=== PATIENT | female | born 1955 | race Caucasian/White ===

== ENCOUNTER → 2016-08-20 | Outpatient (CLI) | payer BC ==
[2016-08-20 08:31] LABS: Basophils % (A) 1 %; CH 28.7; CHCM 32.2; Eosinophils # (A) 0.4 k/uL (0-0.7); Eosinophils % (A) 6 %; HCT 39.8 % (34.0-46.0); HGB 13.5 gm/dL (11.4-16.0); Luc # (Auto) 0.21; Luc % (Auto) 3; Lymphocytes # (A) 1.9 k/uL (1.0-4.8); Lymphocytes % (A) 29 %; MCH 30.3 pg (25.0-35.0); MCHC 33.8 g/dL (31.0-37.0); MCV 89.6 fL (80.0-100.0); Mean Platelet Volume 6.5; Monocytes # (A) 0.4 k/uL (0-1.0); Monocytes % (A) 5 %; Neutrophils # (A) 3.6 k/uL (1.3-7.7); Neutrophils % (A) 56 %; RBC 4.44 m/uL (3.80-5.40); RDW 13.2 % (11.5-15.5); WBC 6.5 k/uL (3.8-10.6); WBC (Perox) 6.89
[2016-08-20 08:51] LABS: ALT 34 U/L (9-52); AST 30 U/L (14-36); Alkaline Phosphatase 112 U/L (38-126); Anion Gap 8 mmol/L; Blood Urea Nitrogen 12 mg/dL (7-17); Calcium 9.3 mg/dL (8.4-10.2); Carbon Dioxide 26 mmol/L (22-30); Chloride 105 mmol/L (98-107); Cholesterol 218 mg/dL (<200); Glucose 93 mg/dL (74-99); HDL Cholesterol 81 mg/dL (40-60); Non-African American GFR(MDRD) >60 (>60 ml/min/1.73 sqM); Potassium 4.6 mmol/L (3.5-5.1); Sodium 139 mmol/L (137-145); Total Bilirubin 0.6 mg/dL (0.2-1.3); Total Protein 7.2 g/dL (6.3-8.2); Triglycerides 96 mg/dL (<150)
== END | disposition home or self-care (01) ==
LOC: LABWHC1 07:34
PROVIDERS: ATTEND Physician Assistant Medical
DX: Z00.01 Encounter for general adult medical examination with abnormal findings (principal); E78.5 Hyperlipidemia, unspecified
CPT/HCPCS: 36415; 80053; 80061; 84443; 85025

== ENCOUNTER → 2016-09-21 | Outpatient (CLI) | payer BC ==
--- NOTE | 2016-09-22 09:31 | MM ---
Reason for exam: screening (asymptomatic). Last mammogram was performed 1 year ago. History: Patient is postmenopausal and is nulliparous. Family history of breast cancer in sister at age 49. Took hormonal contraceptives for 15 years. Took progesterone for 5 months. Taking other hormone. Physical Findings: A clinical breast exam by your physician is recommended on an annual basis and results should be correlated with mammographic findings. MG Screening Mammo w CAD Bilateral CC and MLO view(s) were taken. Prior study comparison: September 27, 2015, bilateral MG screening mammo w CAD. September 25, 2014, bilateral MG screening mammo w CAD. July 31, 2013, bilateral MG screening mammo w CAD. There are scattered fibroglandular densities. Finding: There are typically benign round calcifications in the left breast. There is no discrete abnormality. ASSESSMENT: Benign, BI-RAD 2 RECOMMENDATION: Routine screening mammogram of both breasts in 1 year.
== END | disposition home or self-care (01) ==
LOC: RADMAMWWP 09:00
PROVIDERS: ATTEND Family Medicine
DX: Z12.31 Encounter for screening mammogram for malignant neoplasm of breast (principal)

== ENCOUNTER → 2016-10-16 | Outpatient (CLI) | payer BC ==
[2016-10-16 12:06] LABS: Uric Acid 3.2 mg/dL (3.7-7.4)
[2016-10-16 12:11] LABS: Rheumatoid Factor, Qnt <9 IU/mL (<12)
[2016-10-16 16:47] LABS: ANA w/Reflex to Titer NEGATIVE (NEGATIVE)
[2016-10-20 10:07] LABS: Lyme IgG/IgM Interp NEGATIVE (NEGATIVE)
== END | disposition home or self-care (01) ==
LOC: LABWHC1 09:31
PROVIDERS: ATTEND Orthopaedic Surgery Foot and Ankle Surgery
DX: M79.671 Pain in right foot (principal); M79.672 Pain in left foot; M19.072 Primary osteoarthritis, left ankle and foot
CPT/HCPCS: 36415; 84550; 86038; 86431; 86618

== ENCOUNTER → 2017-08-26 | Outpatient (CLI) | payer BC ==
--- NOTE | 2017-08-27 01:27 | MR ---
EXAMINATION TYPE: MR knee LT wo con DATE OF EXAM: 08/26/2017 COMPARISON: None HISTORY: Lt knee pain/medial TECHNIQUE: Multiplanar, multisequence imaging of the left knee is performed without IV contrast. FINDINGS: There is complex increased signal in the posterior horn medial meniscus extending to the superior and inferior surface. There is some narrowing of the medial joint space. There is horizontal increased s ignal within the anterior and posterior horns of the lateral meniscus. There is some thinning of the anterior cruciate ligament. Posterior cruciate ligament is intact. Ther e is a minute knee joint effusion. There is small degenerative 4 mm cyst in the subchondral patella. The collateral ligaments are intact. IMPRESSION: Small knee joint effusion. Complex horizontal and vertical tear of the posterior horn medial meniscus . There is mild intrasubstance tear of the lateral meniscus without extension to the articular surfac e. There is probably partial tear of the anterior cruciate ligament. No fracture. Mild osteoarthritic changes.
== END | disposition home or self-care (01) ==
LOC: RADMRIMAIN 20:24
PROVIDERS: ATTEND Orthopaedic Surgery
DX: S83.232A Complex tear of medial meniscus, current injury, left knee, initial encounter (principal); S83.282A Other tear of lateral meniscus, current injury, left knee, initial encounter; M17.12 Unilateral primary osteoarthritis, left knee

== ENCOUNTER → 2017-09-03 | Outpatient (CLI) | payer BC ==
[2017-09-03 10:48] LABS: Basophils % (A) 1 %; Eosinophils # (A) 0.2 k/uL (0-0.7); Eosinophils % (A) 3 %; HCT 39.8 % (34.0-46.0); HGB 12.8 gm/dL (11.4-16.0); Lymphocytes # (A) 2.3 k/uL (1.0-4.8); Lymphocytes % (A) 36 %; MCH 28.4 pg (25.0-35.0); MCHC 32.1 g/dL (31.0-37.0); MCV 88.4 fL (80.0-100.0); Mean Platelet Volume 6.2; Monocytes # (A) 0.4 k/uL (0-1.0); Monocytes % (A) 7 %; Neutrophils # (A) 3.2 k/uL (1.3-7.7); Neutrophils % (A) 50 %; Platelet Count 308 k/uL (150-450); RDW 13.8 % (11.5-15.5); WBC 6.4 k/uL (3.8-10.6)
[2017-09-03 10:56] LABS: Potassium 4.7 mmol/L (3.5-5.1)
== END | disposition home or self-care (01) ==
LOC: LABPAT 10:24
PROVIDERS: ATTEND Orthopaedic Surgery
DX: Z01.818 Encounter for other preprocedural examination (principal); M23.92 Unspecified internal derangement of left knee; Z01.812 Encounter for preprocedural laboratory examination
CPT/HCPCS: 36415; 80051; 85025; 93005

== ENCOUNTER 2017-09-22 07:03 | Day surgery (SDC) | payer BC ==
[2017-09-16 15:24] VITALS: BMI 42.9
--- NOTE | 2017-09-21 14:33 | HP ---
HISTORY AND PHYSICAL DATE OF SURGERY: 09/22/17 Ynes Houston is a 62-year-old patient seen with progressive left knee pain. Treatment options discussed. She elected to proceed with arthroscopy. Consent was obtained. PAST MEDICAL HISTORY: Noncontributory. PAST SURGICAL HISTORY: Left ankle surgery, left carpal tunnel release, tonsillectomy. DAILY MEDICATIONS: Multiple multivitamins. ALLERGIES: None reported. SOCIAL HISTORY: Patient denies tobacco use. PHYSICAL EXAMINATION: Evaluation of the left knee: Range of motion 0 to 120 degrees. Mild effusion. Tenderness medial joint line. Positive medial Jazzy's. Ligaments stable. Hip rotation without pain. Distal vascular exam is intact. Distal neuro exam, there is obvious decreased sensation in the tibial nerve distribution consistent with history of tibial neuropathy. X-RAYS: Were obtained of the left knee revealing mild osteoarthritis. MRI was obtained left knee revealing medial meniscal tear, partial ACL tear and joint effusion. The previous EMG was reviewed demonstrating a tibial neuropathy at the level of the knee. IMPRESSIONS: 1. Internal derangement left knee with medial meniscal tear. 2. History of left lower extremity tibial neuropathy. PLAN: Left knee arthroscopy with partial meniscectomy and debridement. MMODL / IJN: [id number] /
[~2017-09-22 07:03] MED LIST: DEXAMETHASONE SOD PHOSPHATE 10 MG/ML 1 ML VIAL IV ONE; LIDOCAINE 1% 20 ML VIAL (10MG/ML) FOR IV START INTRADERMA PRN; MIDAZOLAM 2 MG/2 ML VIAL IV PRN; ONDANSETRON 4 MG/2 ML VIAL IVP ONE; fentaNYL (PF) 50 MCG/ML 2 ML AMP IV PRN
[2017-09-22] MEDS: LACTATED RINGERS 1,000 ML IV SCH ×2 (08:00→08:45)
[2017-09-22] MEDS ORDERED: LIDOCAINE 1% INJ 10MG/ML (20 ML MDV) ONE (08:48)
[2017-09-22] MEDS ORDERED: ROPIVACAINE 5 MG/ML 30 ML VIAL MISCELLANE ONE (08:48)
[2017-09-22] MEDS ORDERED: fentaNYL (PF) 50 MCG/ML 2 ML AMP ONE (08:48)
[2017-09-22] MEDS ORDERED: SUCCINYLCHOLINE CHLORIDE 100 MG/5 ML SYR IV ONE (08:48)
[2017-09-22] MEDS ORDERED: MIDAZOLAM 2 MG/2 ML VIAL ONE (08:48)
[2017-09-22] MEDS ORDERED: HYDROmorphone (PF) 1 MG/ML ONE (08:48)
[2017-09-22] MEDS ORDERED: PROPOFOL 10 MG/ML 20 ML VIAL IV ONE (08:48)
--- NOTE | 2017-09-22 09:47 | P.OP ---
Date of Procedure: 09/22/17 Preoperative Diagnosis: Internal derangement left knee Postoperative Diagnosis: 1. Tear medial and lateral meniscus left knee 2. Grade 3/4 chondromalacia medial femoral condyle left knee 3. Grade 3/4 chondromalacia patellofemoral joint left knee 4. Medial plica left knee 5. Reactive synovitis medial and suprapatellar compartments left knee Procedure(s) Performed: 1. Arthroscopic partial medial and lateral meniscectomy left knee 2. Arthroscopic microfracture medial femoral condyle left knee 3. Arthroscopic chondroplasty medial femoral condyle and patellofemoral joints left knee 4. Arthroscopic resection medial plica left knee 5. Arthroscopic partial synovectomy medial and suprapatellar compartments left knee Anesthesia: TERRYA, local Surgeon: Augusto Ruff Estimated Blood Loss (ml): 7 Pathology: none sent Condition: stable Disposition: PACU Indications for Procedure: 62 roll patient seen with progressive left knee pain. After having treatment options discussed, she elected to proceed with arthroscopy. Operative Findings: see description of procedure Description of Procedure: Patient was taken to the operative suite. Patient underwent a general anesthetic by the department of anesthesia. Patient was given preoperative antibiotics. The left lower extremity was placed in a well-padded arthroscopic leg miller. The left leg was prepped and draped in the normal sterile orthopedic fashion. A lateral parapatellar and suprapatellar incision was made. Trochars were inserted. Arthroscopy was initiated. Suprapatellar pouch revealed diffuse thick reactive synovitis. The patellofemoral joint appeared articulate congruently. There a 3/4 chondromalacia involving both the patella and femoral sulcus with some diffuse osteochondral tears present. The scope was guided into the medial gutter. There was a medial plica which did seem to impinge along the medial femoral condyle with range of motion. The scope was then guided into the medial compartment. A medial parapatellar incision was made. Trocar inserted followed by probe. There was a radial tear involving the posterior horn medial meniscus. There were grade 3/4 chondromalacia changes the medial femoral condyle with osteochondral tears present. There was thick reactive synovitis anteriorly. There were grade 2/3 chondral malacia changes the medial tibial plateau. I performed a partial medial meniscectomy Down to stable tissue. I performed a chondroplasty of the medial femoral condyle down to stable tissue. I performed a partial synovectomy decompressing the thickness reactive synovitis anteriorly. I did note a small area of exposed bone along the weightbearing surface of the medial femoral condyle. I performed a microfracture of that area penetrating the bone. There was good bleeding of the bone at the area of the microfracture. I cleared the area with a motorized shaver. We noted good stable residual meniscal tissue. There was good decompression of that thick reactive synovitis anteriorly. The residual osteochondral surface was stable. Scope and probe were then guided into the intercondylar notch. Cruciates were identified, probed and found to be stable. The scope and probe were then guided into lateral compartment. There was a radial tear mid body lateral meniscus. There were grade 1/2 chondromalacia changes lateral compartment with no significant osteochondral tears present. There was no synovitis. There were no loose bodies. I performed a partial lateral meniscectomy down to stable tissue. The residual meniscus was stable. The scope was in guided back into the suprapatellar compartment. I introduced a motorized shaver into the suprapatellar compartment. I debrided some piecemeal fragments of meniscus I encountered. I now resected that medial plica. I now performed a chondroplasty of the patellofemoral joint getting down to stable osteochondral tissue. I now performed a partial synovectomy decompressing the thick reactive synovitis in the suprapatellar compartment. There was good decompression of the thick reactive synovitis noted there was stable residual osteochondral tissue. I took the knee through range of motion noted complete resection of the plica with good excursion of the joint and no impingement. I took one more look on the entire knee, no residual debris. Instruments were now removed from the joint. The joint was infiltrated with .25 % Marcaine. Steri-Strips were applied to the portal sites. Sterile dressings were applied. The patient was placed into a SHAWN hose. No tourniquet was utilized. The patient was awakened, transferred to a bed and taken to recovery stable satisfactory condition.
[2017-09-22 09:52] VITALS: TEMP 96.9
[2017-09-22] MEDS ORDERED: KETOROLAC 30 MG/ML 1 ML VIAL IVP ONE (10:06)
[2017-09-22 10:30] VITALS: RESP 16
[2017-09-22] MEDS ORDERED: LACTATED RINGERS 1,000 ML IV ONE (10:30)
[2017-09-22 11:02] VITALS: BP 142/72; PULSE 87
== END 2017-09-22 12:00 | disposition home or self-care (01) ==
LOC: OR 07:03
PROVIDERS: ATTEND Orthopaedic Surgery
DX: S83.242A Other tear of medial meniscus, current injury, left knee, initial encounter (principal); S83.282A Other tear of lateral meniscus, current injury, left knee, initial encounter; X58.XXXA Exposure to other specified factors, initial encounter; M94.262 Chondromalacia, left knee; M22.42 Chondromalacia patellae, left knee; M67.52 Plica syndrome, left knee; M65.862 Other synovitis and tenosynovitis, left lower leg; K21.9 Gastro-esophageal reflux disease without esophagitis; Z91.09 Other allergy status, other than to drugs and biological substances
CPT/HCPCS: 29880; 29879; J2250; J1100; J0690; J2405; J2001; J3010; J1885; J1170; J2795; J0330; J2704

== ENCOUNTER 2017-09-29 22:23 | Emergency (ER) | payer BC ==
[2017-09-29 22:39] VITALS: TEMP 98.1
--- NOTE | 2017-09-29 22:42 | ED ---
General Adult HPI - General Chief complaint: Extremity Problem,Nontraumatic Stated complaint: post knee surgery-poss blood clot Time Seen by Provider: 09/29/17 22:42 Source: patient Mode of arrival: ambulatory Limitations: no limitations - History of Present Illness Initial comments: Ynes is a 62yo female who underwent an optic knee surgery 1 week ago, she presents the ED today after she noticed some bruising in her popliteal fossa and became concerned that she may have a DVT. Patient states that since the surgery she has been wearing knee-high compression socks because she cannot tolerate the thigh-high compression, she reports mild edema of her lower extremity. Patient has a history of neuropathy to this foot after previous surgery, she has undergone nerve testing for this foot in the past. She has been told that she will likely have neuropathy for a number of years as her foot recovers from a nerve block. Patient states that since the knee surgery she does feel that her neuropathy is slightly worse. Patient denies any additional complaints. - Related Data Home Medications Medication Instructions Recorded Confirmed Multivitamins, Thera [Multivitamin 1 tab PO DAILY 09/14/17 09/22/17 (formulary)] Vitamin B Complex 1 each PO DAILY 09/14/17 09/22/17 Flaxseed Oil [[place]-3 Flaxseed Oil] 1,000 mg PO DAILY 09/16/17 09/22/17 Red Yeast Rice 600 mg PO DAILY 09/16/17 09/22/17 Previous Rx's Medication Instructions Recorded HYDROcodone/APAP 7.5-325MG [[place] 1 each PO Q6HR PRN #21 tab 09/22/17 7.5] Allergies Allergy/AdvReac Type Severity Reaction Status Date / Time povidone-iodine Allergy SKIN Verified 09/29/17 22:39 [From Betadine] BREAKDOWN Review of Systems ROS Statement: Those systems with pertinent positive or pertinent negative responses have been documented in the HPI. ROS Other: All systems not noted in ROS Statement are negative. Past Medical History Past Medical History: No Reported History History of Any Multi-Drug Resistant Organisms: None Reported Past Surgical History: Orthopedic Surgery Additional Past Surgical History / Comment(s): left knee. left foot. right shoulder. neck. carpal tunnel release. left ankle. Past Psychological History: No Psychological Hx Reported Past Alcohol Use History: None Reported Past Drug Use History: None Reported General Exam Limitations: no limitations General appearance: alert, in no apparent distress Head exam: Present: atraumatic, normocephalic Eye exam: Present: PERRL ENT exam: Present: normal exam Neck exam: Present: normal inspection Cardiovascular Exam: Present: regular rate, normal rhythm GI/Abdominal exam: Present: soft. Absent: distended Rectal exam: Present: deferred Extremities exam: Present: full ROM Left Hip exam: Present: normal inspection Upper Leg exam: Present: normal inspection Knee exam: Present: full ROM, swelling, laceration (Well-healing surgical incisions with Steri-Strips in place, no surrounding erythema or signs of infection) Lower Leg exam: Present: swelling (1+ pitting edema of the lower extremity), ecchymosis (Ecchymosis noted in the popliteal fossa). Absent: tenderness Ankle exam: Present: full ROM Foot/Toe exam: Present: normal inspection Neurovascular tendon exam: Present: no vascular compromise, sensory deficit. Absent: pulse deficit, abnormal cap refill, motor deficit, tendon deficit, pallor, foot drop Course Vital Signs 09/29/17 09/30/17 22:34 01:15 Temperature 98.1 F Pulse Rate 94 88 Respiratory 24 18 Rate Blood Pressure 146/82 147/79 O2 Sat by Pulse 96 96 Oximetry Medical Decision Making - Medical Decision Making The patient was seen and evaluated, history was obtained from the patient and at bedside Patient with no history of DVT but noted some bruising to her what alk phos and became concerned she may have a DVT, she does have a history of varicose veins and did note she had a varicose vein in that area. She does state she's been wearing a knee high compression socks because she cannot tolerate the thigh-high 's. Venous Dopplers with no evidence of DVT Results were discussed with the patient who expresses relief, at this time I suspect that ecchymosis and hernias postoperative. I advised her to continue wearing the compressive sleeves and follow-up with orthopedics as scheduled. All questions pertaining care were answered best my ability patient was discharged home in stable condition Disposition Clinical Impression: Postoperative ecchymosis, Edema of lower extremity Disposition: HOME SELF-CARE Condition: Good Instructions: [place] (ED) Is patient prescribed a controlled substance at d/c from ED?: No Referrals: Nabeel Levi III, MD [Primary Care Provider] - 1-2 days Decision Time: 00:51
--- NOTE | 2017-09-30 00:36 | US ---
EXAMINATION TYPE: US venous doppler duplex LE DATE OF EXAM: 09/30/2017 12:26 AM COMPARISON: NONE CLINICAL HISTORY: Pain. Left knee pain. SIDE PERFORMED: Bilateral TECHNIQUE: The lower extremity deep venous system is examined utilizing real time linear array sonog pranay with graded compression, doppler sonography and color-flow sonography. VESSELS IMAGED: External Iliac Vein (EIV) Common Femoral Vein Deep Femoral Vein Greater Saphenous Vein * Femoral Vein Popliteal Vein Small Saphenous Vein * Proximal Calf Veins (* superficial vessels) Right Leg: Negative for DVT Left Leg: Negative for DVT No evidence of DVT bilateral legs. IMPRESSION: Normal exam. No evidence of deep venous thrombosis in both legs.
[2017-09-30 01:21] VITALS: BP 147/79; PULSE 88; RESP 18
== END 2017-09-30 01:15 | disposition home or self-care (01) ==
LOC: EC 22:23
DX: M96.89 Other intraoperative and postprocedural complications and disorders of the musculoskeletal system (principal); R60.0 Localized edema; Z79.899 Other long term (current) drug therapy; Z88.8 Allergy status to other drugs, medicaments and biological substances; Z98.890 Other specified postprocedural states
CPT/HCPCS: 93970; 99283

== ENCOUNTER → 2017-10-30 | Outpatient (CLI) | payer BC ==
[2017-10-30 09:44] LABS: Basophils % (A) 1 %; Eosinophils # (A) 0.4 k/uL (0-0.7); Eosinophils % (A) 6 %; HCT 40.8 % (34.0-46.0); HGB 12.7 gm/dL (11.4-16.0); Lymphocytes % (A) 31 %; MCH 28.2 pg (25.0-35.0); MCHC 31.1 g/dL (31.0-37.0); MCV 90.5 fL (80.0-100.0); Mean Platelet Volume 6.2; Monocytes # (A) 0.4 k/uL (0-1.0); Monocytes % (A) 6 %; Neutrophils # (A) 3.5 k/uL (1.3-7.7); Neutrophils % (A) 53 %; Platelet Count 341 k/uL (150-450); RBC 4.51 m/uL (3.80-5.40); RDW 13.5 % (11.5-15.5); WBC 6.5 k/uL (3.8-10.6)
[2017-10-30 09:58] LABS: ALT 40 U/L (9-52); AST 31 U/L (14-36); Albumin 3.9 g/dL (3.5-5.0); Alkaline Phosphatase 112 U/L (38-126); Anion Gap 7 mmol/L; Blood Urea Nitrogen 17 mg/dL (7-17); Calcium 9.4 mg/dL (8.4-10.2); Carbon Dioxide 29 mmol/L (22-30); Chloride 105 mmol/L (98-107); Cholesterol 187 mg/dL (<200); Glucose 94 mg/dL (74-99); HDL Cholesterol 75 mg/dL (40-60); LDL Cholesterol,Calculated 97 mg/dL (0-99); Potassium 5.1 mmol/L (3.5-5.1); Sodium 141 mmol/L (137-145); Total Bilirubin 0.4 mg/dL (0.2-1.3); Total Protein 6.8 g/dL (6.3-8.2); Triglycerides 77 mg/dL (<150)
== END ==
LOC: LABWHC1 08:23
PROVIDERS: ATTEND Physician Assistant Medical
DX: Z00.00 Encounter for general adult medical examination without abnormal findings (principal); E78.5 Hyperlipidemia, unspecified; E66.01 Morbid (severe) obesity due to excess calories
CPT/HCPCS: 36415; 80053; 80061; 84443; 85025

== ENCOUNTER → 2019-02-02 | Outpatient (CLI) | payer BC ==
--- NOTE | 2019-02-03 14:50 | MM ---
Reason for exam: screening (asymptomatic). Last mammogram was performed 1 year and 1 month ago. History: Patient is postmenopausal and is nulliparous. Family history of breast cancer in sister at age 49. Took hormonal contraceptives for 15 years. Took progesterone for 5 months. Taking other hormone. Physical Findings: A clinical breast exam by your physician is recommended on an annual basis and results should be correlated with mammographic findings. MG Screening Mammo w CAD Bilateral CC and MLO view(s) were taken. Prior study comparison: January 13, 2018, bilateral MG screening mammo w CAD. September 21, 2016, bilateral MG screening mammo w CAD. There are scattered fibroglandular densities. There is no discrete abnormality. No significant changes when compared with prior studies. ASSESSMENT: Negative, BI-RAD 1 RECOMMENDATION: Routine screening mammogram of both breasts in 1 year.
== END | disposition home or self-care (01) ==
LOC: RADMAMWWP 09:13
PROVIDERS: ATTEND Family Medicine
DX: Z12.31 Encounter for screening mammogram for malignant neoplasm of breast (principal)
CPT/HCPCS: 77067

== ENCOUNTER → 2020-05-31 | Outpatient (CLI) | payer BC ==
--- NOTE | 2020-06-04 07:33 | MM ---
Reason for exam: screening (asymptomatic). Last mammogram was performed 1 year and 4 months ago. History: Patient is postmenopausal and is nulliparous. Family history of breast cancer in sister at age 49. Took hormonal contraceptives for 15 years. Took progesterone for 5 months. Taking other hormone. Physical Findings: A clinical breast exam by your physician is recommended on an annual basis and results should be correlated with mammographic findings. MG Screening Mammo w CAD Bilateral CC and MLO view(s) were taken. Prior study comparison: February 02, 2019, bilateral MG screening mammo w CAD. January 13, 2018, bilateral MG screening mammo w CAD. The breast tissue is almost entirely fat. No significant changes when compared with prior studies. ASSESSMENT: Negative, BI-RAD 1 RECOMMENDATION: Routine screening mammogram of both breasts in 1 year.
== END | disposition home or self-care (01) ==
LOC: RADMAMWWP 13:11
PROVIDERS: ATTEND Family Medicine
DX: Z12.31 Encounter for screening mammogram for malignant neoplasm of breast (principal); Z78.0 Asymptomatic menopausal state; Z80.3 Family history of malignant neoplasm of breast
CPT/HCPCS: 77067

== ENCOUNTER 2021-03-08 13:42 | Emergency (ER) | payer BC ==
[2021-03-08 14:00] VITALS: RESP 20; TEMP 98.4
[2021-03-08] MEDS ORDERED: LIDOCAINE VISCOUS 2% 15 ML CUP MUCOUS MEM ONE (14:25)
[2021-03-08] MEDS ORDERED: dexAMETHasone 2 MG TAB PO STA (14:26)
--- NOTE | 2021-03-08 14:26 | ED ---
General Adult HPI - General Chief complaint: Upper Respiratory Infection Stated complaint: Sore Throat, Covid+ Source: patient Mode of arrival: ambulatory Limitations: no limitations - History of Present Illness Initial comments: 65-year-old female presents emergency department requesting antibody infusion. She states that she has had a positive contact. She has had symptoms since Wednesday night. Consist of a headache and sore throat. Patient is not vaccinated. She denies chest pain or shortness of breath. No fevers or chills. No other alleviating, precipitating or modifying factors - Related Data Home Medications Medication Instructions Recorded Confirmed Multivitamins, Thera [Multivitamin 1 tab PO DAILY 09/14/17 09/22/17 (formulary)] Vitamin B Complex 1 each PO DAILY 09/14/17 09/22/17 Red Yeast Rice 600 mg PO DAILY 09/16/17 09/22/17 flaxseed oiL [[place]-3 Flaxseed Oil] 1,000 mg PO DAILY 09/16/17 09/22/17 Previous Rx's Medication Instructions Recorded HYDROcodone/APAP 7.5-325MG [[place] 1 each PO Q6HR PRN #21 tab 09/22/17 7.5] Allergies Allergy/AdvReac Type Severity Reaction Status Date / Time povidone-iodine Allergy SKIN Verified 03/08/21 14:00 [From Betadine] BREAKDOWN Review of Systems ROS Statement: Those systems with pertinent positive or pertinent negative responses have been documented in the HPI. ROS Other: All systems not noted in ROS Statement are negative. Past Medical History Past Medical History: No Reported History History of Any Multi-Drug Resistant Organisms: None Reported Past Surgical History: Orthopedic Surgery Additional Past Surgical History / Comment(s): left knee. left foot. right shoulder. neck. carpal tunnel release. left ankle. Past Psychological History: No Psychological Hx Reported Smoking Status: Never smoker Past Alcohol Use History: Occasional Past Drug Use History: None Reported General Exam Limitations: no limitations Course Vital Signs 03/08/21 13:57 Temperature 98.4 F Pulse Rate 97 Respiratory 20 Rate Blood Pressure 150/78 O2 Sat by Pulse 97 Oximetry Medical Decision Making - Medical Decision Making Upon arrival patient is placed into room 24. She does meet criteria for antibody infusion. Patient is swabbed to document that she is covid positive and she is. Patient will be given infusion. Instructed to follow-up with her primary care doctor in 2-4 days. Return for any new or worsening symptoms especially of her pulse ox was 90%. Patient agreement treatment plan she was discharged home in stable condition - Lab Data Lab Results 03/08/21 Range/Units 14:23 Coronavirus (PCR) Detected A (Not Detectd) Disposition Clinical Impression: COVID-19 Disposition: HOME SELF-CARE Condition: Stable Instructions (If sedation given, give patient instructions): Coronavirus Disease 2019 (COVID-19) Additional Instructions: Please follow-up with your primary care doctor within 2-4 days. Return to the emergency room for any new or worsening symptoms Is patient prescribed a controlled substance at d/c from ED?: No Referrals: Teresa Muñoz MD [Primary Care Provider] - 1-2 days Time of Disposition: 14:25
[2021-03-08] MEDS ORDERED: SODIUM CHLORIDE 0.9% 50 ML IVPB ONE (14:30)
[2021-03-08] MEDS ORDERED: SOTROVIMAB (EUA) 500 MG in SODIUM CHLORIDE 0.9% 100 ML IVPB ONE (14:30)
[2021-03-08 16:17] VITALS: BP 118/80; PULSE 87
== END 2021-03-08 17:52 | disposition home or self-care (01) ==
LOC: EC 13:42
DX: U07.1 COVID-19 (principal)
CPT/HCPCS: 87635; 99284; 96360; J8540; Q0247

== ENCOUNTER → 2021-06-19 | Outpatient (CLI) | payer BC | END | disposition home or self-care (01) | LOC: RADUSWWP 09:29 | PROVIDERS: ATTEND Family Medicine | DX: E78.5 Hyperlipidemia, unspecified (principal); M79.605 Pain in left leg; R09.89 Other specified symptoms and signs involving the circulatory and respiratory systems | CPT/HCPCS: 93922 ==

== ENCOUNTER → 2021-07-23 | Outpatient (CLI) | payer BC ==
--- NOTE | 2021-07-23 11:37 | BD ---
EXAMINATION TYPE: Axial Bone Density DATE OF EXAM: 07/23/2021 COMPARISON: NONE CLINICAL HISTORY: 66 years year old Female. ICD-10 CODE: Z13.820 SCREEN FOR OSTEOPOROSIS Height: 63 Weight: 258.2 FRAX RISK QUESTIONS: Alcohol (3 or more units per day): NO Family History (Parent hip fracture): NO Glucocorticoids (More than 3mos): NO History of Fracture in Adulthood: NO Secondary Osteoporosis: 1. Type 1 Diabetes: NO 2. Hyperthyroidism: NO 3. Menopause before 45: NO 4. Malnutrition: NO 5. Chronic liver disease: NO Rheumatoid Arthritis: NO Current Tobacco Use: NO RISK FACTORS HISTORY OF: Hip Fracture (Right/Left): NO Spine Fracture: NO History of Wrist Fracture: NO Surgery to Spine/Hip(right/left)/Wrist (right/left): LT WRIST CARPAL TUNNEL When: 1997 Family History of Osteoporosis: NO Active: YES Diet low in dairy products/other sources of calcium: NO Postmenopausal woman: YES Take estrogen and/or progesterone medications: NO Lost more than 2 inches in height since high school: YES Frequent falls: NO Poor Health: NO Hyperparathyroidism: NO Adrenal Insufficiency: NO MEDICATIONS: Prednisone or other steroids: NO Thyroid Medications: NO Osteoporosis Medications: NO Additional Medications: MULTI VIT., VIT D, MAGNESIUM, ZINC, TUMERIC Additional History: EXAM MEASUREMENTS: Bone mineral densitometry was performed using the [employer] System. Bone mineral density as measured about the Lumbar spine is: ----- L1-L4(G/cm2): 1.024 T Score Values are as follows: ----- L1: -2.3 ----- L2: -2.7 ----- L3: -1.9 ----- L4: 0.8 ----- L1-L4: -1.3 BASELINE STUDY Bone mineral density about the R hip (g/cm2): 1.004 Bone mineral density about the L hip (g/cm2): 0.896 T Score values are as follows: -----R Neck: -0.2 -----L Neck: -1.0 -----R Total: -1.1 -----L Total: -1.3 BASELINE STUDY FRAX%s: The graph provided illustrates a 2.5% chance for a major osteoporotic fx and a 0.3% chance fo r the hips probability for fx in 10 years time. IMPRESSION: Osteopenia NOTE: T-SCORE=SD OF THE YOUNG ADULT MEAN.
--- NOTE | 2021-07-25 11:36 | MM ---
Reason for Exam: Screening (asymptomatic). Last mammogram was performed 1 year(s) and 2 month(s) ago. Patient History: Menarche at age 15. Patient has no children. Postmenopausal. Progesterone for 5 months. Patient used Hormonal Contraceptives for 15 years. Sister had breast cancer, age 49. Risk Values: Jordyn 5 year model risk: 3.2%. NCI Lifetime model risk: 12.4%. Prior Study Comparison: 01/13/2018 Bilateral Screening Mammogram, [facility]. 02/02/2019 Bilateral Screening Mammogram, [facility]. 05/31/2020 Bilateral Screening Mammogram, [facility]. Tissue Density: There are scattered fibroglandular densities. Findings: Analyzed By CAD. No suspicious groups of microcalcifications, spiculated or lobular masses, architectural distortion or other secondary signs of malignancy are mammographically apparent. Overall Assessment: Benign, BI-RAD 2 Management: Screening Mammogram of both breasts in 1 year. A negative mammogram report should not preclude additional follow up of suspicious palpable abnormalities. Patient should continue monthly self breast exam. A clinical breast exam by your physician is recommended on an annual basis and results should be correlated with mammographic findings. Electronically signed and approved by: Trae Blue D.O. Radiologis
== END | disposition home or self-care (01) ==
LOC: RADMAMWWP 10:44
PROVIDERS: ATTEND Family Medicine
DX: Z12.31 Encounter for screening mammogram for malignant neoplasm of breast (principal); M85.89 Other specified disorders of bone density and structure, multiple sites; Z78.0 Asymptomatic menopausal state
CPT/HCPCS: 77067; 77080

== ENCOUNTER → 2022-06-03 | Outpatient (CLI) | payer BC ==
[2022-06-03 11:02] LABS: Basophils # (A) 0.03 X 10*3/uL (0.00-0.10); Basophils % (A) 0.5 %; Eosinophils # (A) 0.35 X 10*3/uL (0.04-0.35); Eosinophils % (A) 5.5 %; HCT 41.1 % (37.2-46.3); HGB 13.4 g/dL (12.0-15.0); Immature Grans, Automated 0.2 %; Lymphocytes # (A) 2.33 X 10*3/uL (0.90-5.00); Lymphocytes % (A) 36.4 %; MCH 29.1 pg (27.0-32.0); MCHC 32.6 g/dL (32.0-37.0); MCV 89.3 fL (80.0-97.0); Mean Platelet Volume 9.8 fL (9.5-12.2); Monocytes # (A) 0.55 X 10*3/uL (0.20-1.00); Monocytes % (A) 8.6 %; NRBC Per 100 WBC 0 /100 WBCS (0.0-0.0); Neutrophils # (A) 3.13 X 10*3/uL (1.80-7.70); Neutrophils % (A) 48.8 %; Platelet Count 292 X 10*3/uL (140-440); RDW 13.3 % (11.5-14.5)
[2022-06-03 11:27] LABS: ALT 21 U/L (8-44); AST 24 U/L (13-35); African American GFR (CKD) 95.8 (60.0-200.0); Albumin 4.2 g/dL (3.8-4.9); Albumin/Globulin Ratio 1.57 (1.60-3.17); Alkaline Phosphatase 94 U/L (41-126); BUN/Creat Ratio 24.67 Ratio (12.00-20.00); Blood Urea Nitrogen 18.8 mg/dL (9.0-27.0); Calcium 9.5 mg/dL (8.7-10.3); Carbon Dioxide 26.8 mmol/L (20.0-27.5); Chloride 105 mmol/L (96-109); Chol/HDL Ratio 2.69 Ratio; Globulin 2.7 g/dL (1.6-3.3); Glucose 98 mg/dL (70-110); LDL Cholesterol,Calculated 106.4 mg/dL (0.0-131.0); Non-African American GFR(CKD) 82.6 (60.0-200.0); Potassium 4.3 mmol/L (3.5-5.5); Sodium 141 mmol/L (135-145); Total Protein 6.9 g/dL (6.2-8.2)
== END | disposition home or self-care (01) ==
LOC: LABWHC1 07:23
PROVIDERS: ATTEND Nurse Practitioner Family
DX: E55.9 Vitamin D deficiency, unspecified (principal); E78.2 Mixed hyperlipidemia; G58.9 Mononeuropathy, unspecified; Z13.228 Encounter for screening for other metabolic disorders; R00.2 Palpitations
CPT/HCPCS: 36415; 80053; 80061; 82306; 83036; 83735; 84443; 85025

== ENCOUNTER → 2022-07-24 | Outpatient (CLI) | payer BC ==
--- NOTE | 2022-07-27 08:35 | MM ---
Reason for Exam: Screening (asymptomatic). Last screening mammogram was performed 12 month(s) ago. Patient History: Menarche at age 15. Patient has no children. Postmenopausal. Progesterone for 5 months. Patient used Hormonal Contraceptives for 15 years. Sister had breast cancer, age 49. Risk Values: Jordyn 5 year model risk: 3.3%. NCI Lifetime model risk: 12.0%. Prior Study Comparison: 09/27/2015 Bilateral Screening Mammogram, [facility]. 09/21/2016 Bilateral Screening Mammogram, [facility]. 01/13/2018 Bilateral Screening Mammogram, [facility] 02/02/2019 Bilateral Screening Mammogram, [facility]. 05/31/2020 Bilateral Screening Mammogram, [facility]. 07/23/2021 Bilateral MG screening mammo w CAD, [facility]. Tissue Density: There are scattered fibroglandular densities. Findings: Analyzed By CAD. There is no suspicious group of microcalcifications or new suspicious mass in either breast. Overall Assessment: Negative, BI-RAD 1 Management: Screening Mammogram of both breasts in 1 year. . Patient should continue monthly self-breast exams. A clinical breast exam by your physician is recommended on an annual basis. This exam should not preclude additional follow-up of suspicious palpable abnormalities. Note on Jordyn scores and lifetime risk: 1. A Jordyn score greater than 3% is considered moderate risk. If this is the case, consider specialist referral to assess eligibility for a risk reducing agent. 2. If overall lifetime risk for the development of breast cancer is 20% or higher, the patient may qualify for future screening with alternating mammogram and breast MRI. Electronically signed and approved by: Ajay Culver M.D. Radiologis
== END | disposition home or self-care (01) ==
LOC: RADMAMWWP 08:56
PROVIDERS: ATTEND Family Medicine
DX: Z12.31 Encounter for screening mammogram for malignant neoplasm of breast (principal); Z78.0 Asymptomatic menopausal state; Z80.3 Family history of malignant neoplasm of breast
CPT/HCPCS: 77067

== ENCOUNTER 2022-08-11 08:00 | Inpatient (IN) | payer BC ==
[~2022-08-11 08:00] MED LIST changes: -DEXAMETHASONE SOD PHOSPHATE 10 MG/ML 1 ML VIAL IV ONE; +LIDOCAINE 1% (10MG/ML) FOR IV START INTRADERMA PRN; -LIDOCAINE 1% 20 ML VIAL (10MG/ML) FOR IV START INTRADERMA PRN; -MIDAZOLAM 2 MG/2 ML VIAL IV PRN; -ONDANSETRON 4 MG/2 ML VIAL IVP ONE; -fentaNYL (PF) 50 MCG/ML 2 ML AMP IV PRN
[2022-08-11] MEDS: LACTATED RINGERS 1,000 ML IV SCH (08:21)
[2022-08-11] MEDS ORDERED: PROPOFOL 10 MG/ML 20 ML VIAL IV ONE ×2 (09:04→13:45)
[2022-08-11] MEDS ORDERED: LIDOCAINE 2% INJ 20 MG/ML (2 ML VIAL) ONE ×2 (09:04→13:45)
[2022-08-11] MEDS ORDERED: IV FLUID CONTINUATION 1,000 ML IV ONE (09:59)
--- NOTE | 2022-08-11 10:02 | P.PCN ---
Date of Procedure: 08/11/22 Procedure(s) Performed: BRIEF HISTORY: Patient is a 67-year-old pleasant white female scheduled for an elective colonoscopy as a part of screening for colon cancer/family history of colon cancer. Her father was diagnosed with colon cancer at age 70. Her last colonoscopy was 5 years ago and according to the patient was normal. PROCEDURE PERFORMED: Attempted colonoscopy. PREOPERATIVE DIAGNOSIS: Screening for colon cancer/family history of colon cancer. IV sedation per Anesthesia. PROCEDURE: After informed consent was obtained, the patient, was brought into the endoscopy unit. IV sedation was administered by Anesthesia under continuous monitoring. Digital rectal examination was normal. Initially the Olympus CF-160 flexible video colonoscope was then inserted in the rectum, gradually advanced into the sigmoid colon there was some diverticulosis noted. As was trying to pass the scope through the sigmoid colon there was one diverticulum that appeared large and the scope kept advancing into the diverticulum which appeared slightly stretched and there was some questionable flat identified in this area. Because of the concern of perforation , I immediately terminated the procedure. Retroflexion was performed in the rectum and no lesions were seen. The patient tolerated the procedure well. IMPRESSION: Scattered sigmoid diverticulosis Scope could not be advanced beyond the sigmoid colon and the procedure was terminated because of concern for possible perforation of the sigmoid d iverticulum. RECOMMENDATIONS: Findings of this examination were discussed with the patient as well as her family.. We will obtain CT of the abdomen and pelvis with rectal contrast to evaluate further. Obtained consultation with Dr. Muñoz.
--- NOTE | 2022-08-11 11:05 | CT ---
EXAMINATION TYPE: CT abdomen pelvis w con DATE OF EXAM: 08/11/2022 HISTORY: R/O sigmoid perforation. Aborted colonoscopy this morning. Rectal contrast. Pain after proce dure. CT DLP: 2106.2mGycm Automated Exposure Control for Dose Reduction was Utilized. CONTRAST: CT scan of the abdomen and pelvis is performed with rectal and with IV Contrast, patient injected wit h 100 mL of Isovue 300. COMPARISON: None. FINDINGS: LUNG BASES: No significant abnormality is appreciated. LIVER/GB: Possible tiny dependent gallstone axial image 28 versus extravasated contrast. Adjacent foc i of free air or gallbladder seen. PANCREAS: Some fat replaced atrophy in the region of the pancreatic head. SPLEEN: No significant abnormality is seen. ADRENALS: No significant abnormality is seen. KIDNEYS: There is 2.6 cm simple appearing thin-walled cyst in the right kidney axial image 40. BOWEL: Small sized hiatal hernia. Rectal tube is in place. There is contrast extension to at least le jeanine of the transverse colon. There is contrast extravasation throughout the abdomen and pelvis greate st in prominence in the pelvis level of the sigmoid colon near axial image 67. Extensive pneumoperito neum is present. There is additional retroperitoneal air in the posterior pelvis including presacral region and along the right iliopsoas muscle for reference. Poor distention of sigmoid colon is noted with at least [id number] wall thickening or axial image 76. Mild/moderate wall thickening in th e more proximal proximal to mid sigmoid colon is present. UTERUS/ADNEXA: No gross abnormality seen. LYMPH NODES: No greater than 1cm abdominal or pelvic lymph nodes are appreciated. OSSEOUS STRUCTURES: Multilevel spurring and disc space narrowing. Disc space narrowing greatest L2-L3 through L5-S1 levels. Slight scoliotic curvature. Moderate axial joint space loss in both hips. OTHER: Mild calcified plaque of the aorta extends into branch vessels. IMPRESSION: Confirmation of free intraperitoneal retroperitoneal air and contrast extravasation from colonic perforation believed to be at level of the sigmoid colon in the pelvis. Critical results communicated to ordering physician via telephone at time of dictation.
[2022-08-11] MEDS ORDERED: metroNIDAZOLE-NS PMX 500 MG in SALINE 1 100ML.BAG IVPB STA (11:20)
[2022-08-11] MEDS ORDERED: fentaNYL (PF) 50 MCG/ML 2 ML AMP ONE ×2 (12:02→13:45)
[2022-08-11] MEDS: PIPERACILLIN-TAZOBACTAM 3.375 GM in SODIUM CHLORIDE 0.9% 100 ML IVPB SCH ×3 (12:05→23:14)
[2022-08-11 12:16] LABS: Basophils % (A) 0 %; Eosinophils # (A) 0.1 k/uL (0-0.7); Eosinophils % (A) 2 %; HCT 44.5 % (34.0-46.0); HGB 14.5 gm/dL (11.4-16.0); Lymphocytes # (A) 1.7 k/uL (1.0-4.8); Lymphocytes % (A) 27 %; MCH 29.6 pg (25.0-35.0); MCHC 32.6 g/dL (31.0-37.0); MCV 90.6 fL (80.0-100.0); Monocytes # (A) 0.3 k/uL (0-1.0); Monocytes % (A) 5 %; Neutrophils # (A) 4.1 k/uL (1.3-7.7); Neutrophils % (A) 64 %; Platelet Count 270 k/uL (150-450); RBC 4.91 m/uL (3.80-5.40); RDW 13.3 % (11.5-15.5); WBC 6.4 k/uL (3.8-10.6)
[2022-08-11 12:19] LABS: ALT 28 U/L (4-34); AST 36 U/L (14-36); African American GFR (CKD) >90 (>60 ml/min/1.73 sqM); Albumin 4.1 g/dL (3.5-5.0); Alkaline Phosphatase 104 U/L (38-126); Anion Gap 8 mmol/L; Blood Urea Nitrogen 15 mg/dL (7-17); Calcium 9.2 mg/dL (8.4-10.2); Carbon Dioxide 27 mmol/L (22-30); Chloride 103 mmol/L (98-107); Glucose 105 mg/dL (74-99); Non-African American GFR(CKD) >90 (>60 ml/min/1.73 sqM); Potassium 4.2 mmol/L (3.5-5.1); Sodium 138 mmol/L (137-145); Total Bilirubin 0.5 mg/dL (0.2-1.3); Total Protein 7.3 g/dL (6.3-8.2)
[2022-08-11] MEDS ORDERED: LACTATED RINGERS 1,000 ML IV ONE ×4 (12:24)
--- NOTE | 2022-08-11 12:25 | P.GSHP ---
History of Present Illness H&P Date: 08/11/22 Chief Complaint: Sigmoid colon perforation Patient came to the hospital today for elective colonoscopy. Family history of colon cancer in her father. Last colonoscopy 5 years ago. During the colonoscopy the patient had tortuosity of the sigmoid colon with diverticulosis present. During the evaluation Dr. Mijares was concerned about the possibility of perforation. Adult and pediatric colonoscope was utilized however I don't believe the scope passed beyond the distal sigmoid colon. A CAT scan with rectal contrast was utilized and did demonstrate evidence of perforation. Patient complaining of mild abdominal crampy discomfort. White blood cell count is normal. - Review of Systems Comment: The patient denies any acute changes in vision or hearing, no dysphagia or odynophagia, no chest pain or shortness of breath, no dysuria or hematuria, no headache, no runny nose, no rectal bleeding or melena, no unexplained weight los s Past Medical History Past Medical History: Cancer, GERD/Reflux Additional Past Medical History / Comment(s): glaucoma, skin cancer History of Any Multi-Drug Resistant Organisms: None Reported Past Surgical History: Orthopedic Surgery, Uterine Ablation Additional Past Surgical History / Comment(s): arthroscopy left knee. left foot. right shoulder. cervical herniated disc with hardware., carpal tunnel release. left ankle. Past Anesthesia/Blood Transfusion Reactions: No Reported Reaction Past Psychological History: No Psychological Hx Reported Smoking Status: Never smoker Past Alcohol Use History: Occasional Past Drug Use History: None Reported - Past Family History Father Family Medical History: Cancer Additional Family Medical History / Comment(s): colon cancer Sister(s) Family Medical History: Cancer Additional Family Medical History / Comment(s): breast cancer Medications and Allergies Home Medications Medication Instructions Recorded Confirmed Type Multivitamins, Thera [Multivitamin 1 tab PO DAILY 09/14/17 08/11/22 History (formulary)] Aspirin [Adult Low Dose Aspirin EC] 81 mg PO DAILY 08/06/22 08/11/22 History Latanoprost Eye Gtts 1 drop BOTH EYES HS 08/06/22 08/11/22 History Allergies Allergy/AdvReac Type Severity Reaction Status Date / Time povidone-iodine Allergy SKIN Verified 08/11/22 08:37 [From Betadine] BREAKDOWN adhesive AdvReac Unknown makes skin Verified 08/11/22 08:37 raw., itchy. Surgical - Exam Vital Signs Temp Pulse Resp BP Pulse Ox 98 F 76 16 134/63 96 08/11/22 08:25 08/11/22 08:25 08/11/22 08:25 08/11/22 08:25 08/11/22 08:25 Physical exam: General: Well-developed, well-nourished HEENT: Normocephalic, sclerae nonicteric Abdomen: Mild diffuse tenderness, mild distention, mild obesity Extremities: No edema Neuro: Alert and oriented Results - Labs 08/11/22 11:56 Assessment and Plan (1) Colon perforation Narrative/Plan: 67-year-old female with colon perforation during colonoscopy today. CAT scan reviewed and does demonstrate evidence of sigmoid colon perforation. Clinical scenario discussed in detail with the patient and also her at the beds ulisses. Will begin broad-spectrum antibiotics. Check labs. We'll proceed with exploratory laparotomy with possible repair site of colon perforation, possible colectomy, possible colostomy. Risks of bleeding, infection, bladder bowel and ureteral injury, hernia, sepsis, abscess, leak, possible need for ostomy. Patient understands and wishes to proceed. Current Visit: Yes Status: Acute Code(s): K63.1 - PERFORATION OF INTESTINE (NONTRAUMATIC) SNOMED Code(s): 85855815
[2022-08-11] MEDS ORDERED: fentaNYL (PF) 50 MCG/ML 2 ML AMP IVP ONE (12:38)
[2022-08-11] MEDS ORDERED: MIDAZOLAM 2 MG/2 ML VIAL IVP ONE (12:38)
--- NOTE | 2022-08-11 12:53 | P.ANPRN ---
Procedure Note - Anesthesia - Nerve Block Performed Bilateral Rectus Abdominis Single Time Out Performed: Yes (1237) Date of Procedure: 08/11/22 Procedure Start Time: 12:38 Procedure Stop Time: 12:45 Location of Patient: Phase I Indication: Acute Post-Operative Pain, Requested by Surgeon Specifically requested for management of pain by DrEvan: Kyler Muñoz Sedation Type: Sedate with meaningful contact maintained Preparation: Sterile Prep Position: Supine Catheter: None Needle Types: Pajunk Needle Gauge: 21 Ultrasound used to visualize needle placement: Yes Ultrasound used to observe medication spread: Yes Injectate: 0.5% Ropivacaine (see comment for volume) (20cc + 10cc nacl pf each side) Blood Aspirated: No Pain Paresthesia on Injection Noted: No Resistance on Injection: Normal Image Stored and Saved: Yes Events: Uneventful and Well Tolerated
[2022-08-11] MEDS ORDERED: HEPARIN SODIUM,PORCINE 5,000 UNIT/ML 1 ML VIAL SQ ONE ×2 (13:12)
[2022-08-11] MEDS ORDERED: ONDANSETRON 4 MG/2 ML VIAL IVP ONE (13:23)
[2022-08-11] MEDS ORDERED: SUCCINYLCHOLINE CHLORIDE 200 MG/10 ML VIAL IV ONE (13:45)
[2022-08-11] MEDS ORDERED: GLYCOPYRROLATE 0.2 MG/ML 2 ML VIAL ONE (13:45)
[2022-08-11] MEDS ORDERED: ROPIVACAINE 5 MG/ML 30 ML VIAL ONE (13:45)
[2022-08-11] MEDS ORDERED: MIDAZOLAM 2 MG/2 ML VIAL ONE (13:45)
[2022-08-11] MEDS ORDERED: GLUCAGON 1 MG/ML VIAL ONE (13:45)
[2022-08-11] MEDS ORDERED: NEOSTIGMINE 1 MG/ML 10 ML VIAL ONE (13:45)
[2022-08-11] MEDS ORDERED: HYDROmorphone (PF) 1 MG/ML ONE (13:45)
[2022-08-11] MEDS ORDERED: SODIUM CHLORIDE 0.9% (PF) 10 ML VIAL ONE (13:45)
[2022-08-11] MEDS ORDERED: LABETALOL 5 MG/ML VIAL MDV ONE (13:45)
[2022-08-11] MEDS ORDERED: ROCURONIUM 10 MG/ML (5 ML VIAL) IV ONE (13:45)
[2022-08-11] MEDS ORDERED: LACTATED RINGERS 600 ML IV ONE (13:48)
[2022-08-11] MEDS ORDERED: ALBUTEROL NEBULIZED 2.5 MG/3 ML INHALATION ONE (15:57)
[2022-08-11] MEDS ORDERED: METOCLOPRAMIDE 5 MG/ML 2 ML VIAL IVP PRN (16:03)
[2022-08-11] MEDS ORDERED: ONDANSETRON 4 MG/2 ML VIAL IVP PRN (16:03)
[2022-08-11] MEDS ORDERED: BENZOCAINE/MENTHOL LOZENG 1 EACH LOZENGE MUCOUS MEM PRN (16:03)
--- NOTE | 2022-08-11 16:11 | P.OP ---
Date of Procedure: 08/11/22 Procedure(s) Performed: PREOPERATIVE DIAGNOSIS: Perforated sigmoid colon POSTOPERATIVE DIAGNOSIS: Same PROCEDURE: Low anterior sigmoid resection SURGEON: aWnda EBL: 25 mL ANESTHESIA: General COMPLICATIONS: None OPERATIVE PROCEDURE: Patient place in the operative table in the supine position. The patient was placed under general anesthesia. The patient was then placed in lithotomy. The abdomen was prepped and draped in usual sterile fashion. A vertical incision was made extending from the infraumbilical location to the suprapubic location. The fascia was divided as well. The Bookwalter retractor was utilized. The patient had air and free fluid in the abdomen. This was minimally cloudy in appearance. There was no stool seen. Inspection of the sigmoid colon demonstrated what was thought to represent the site of perforation approximately 5-10 cm proximal to the junction with the rectum. It was decided to proceed with segmental resection. The sigmoid colon was fully mobilized by incising the white line of Toldt. A site was chosen for division of the sigmoid colon proximally. A small colotomy was created and the 25 EEA anvil was advanced into the lumen of the sigmoid colon and milked proximally. The bowel was then divided using a linear 75 stapler and the anvil was brought out adjacent to the staple line. A 3-0 silk pursestring suture was placed around the anvil at that location. The mesentery was divided using the LigaSure device. Dissection took place down to the region of the proximal rectum which was about 5 cm distal to the suspected site of perforation. The proximal rectum was divided using the contour stapler. The specimen was passed off the field at that point. On the back table the specimen was opened. I was able to identify what was thought to represent a perforated diverticulum a silk stitch was placed here. No signs of bleeding at either staple line was noted after irrigation. The stapler was then inserted into the anus and brought up to the staple line. The obturator was brought out anterior to the staple line. The 2 portions of the stapler were connected to one another and subsequently tightened and fired. The bowel was clamped proximal to the anastomosis. The rigid sigmoidoscope was utilized to fill the anastomotic site nicely with air. There was saline in the pelvis at this time. No evidence of leak was seen. The abdomen was thoroughly irrigated with saline. The liver, stomach, visualized colon, and small bowel appeared normal. The midline fascia was then reapproximated using 2 separate double-stranded #1 PDS sutures. A UZAIR drain was placed anterior to the fascial closure exiting from the right lateral lower quadrant. This was sutured in place using a silk stitch. The subcutaneous tissues were closed using 3-0 Vicryl sutures. The skin was then closed using ramiro. Sterile dressings were then applied. DISPOSITION: Stable to recovery room
[2022-08-11] MEDS: D5-0.45% NACL WITH KCL 20MEQ/L 1,000 ML IV SCH ×2 (17:31→23:14)
[2022-08-11] MEDS: KETOROLAC 15 MG/ML 1 ML VIAL IVP SCH ×2 (17:45→23:14)
[2022-08-11] MEDS: FAMOTIDINE 20 MG/2 ML VIAL IV SCH (21:03)
[2022-08-11] MEDS: HEPARIN SODIUM,PORCINE/PF 5,000 UNIT/0.5 ML SYRINGE SQ SCH (23:14)
[2022-08-12] MEDS: LACTATED RINGERS 1,000 ML IV SCH (00:04)
[2022-08-12] MEDS: HYDROmorphone 1 MG/ML 1 ML SYRINGE IVP PRN ×2 (02:29→11:18)
[2022-08-12] MEDS: KETOROLAC 15 MG/ML 1 ML VIAL IVP SCH ×3 (05:42→17:52)
[2022-08-12] MEDS: PIPERACILLIN-TAZOBACTAM 3.375 GM in SODIUM CHLORIDE 0.9% 100 ML IVPB SCH ×2 (08:17→15:24)
[2022-08-12] MEDS: HEPARIN SODIUM,PORCINE/PF 5,000 UNIT/0.5 ML SYRINGE SQ SCH ×2 (08:17→15:25)
[2022-08-12] MEDS: FAMOTIDINE 20 MG/2 ML VIAL IV SCH ×2 (09:28→20:47)
[2022-08-12] MEDS: D5-0.45% NACL WITH KCL 20MEQ/L 1,000 ML IV SCH ×2 (09:29→17:57)
[2022-08-12] MEDS: HYDROcodone/APAP 5-325MG 1 EACH TAB PO PRN (09:34)
[2022-08-12 11:01] LABS: Basophils # (A) 0.04 X 10*3/uL (0.00-0.10); Basophils % (A) 0.3 %; Eosinophils # (A) 0.02 X 10*3/uL (0.04-0.35); Eosinophils % (A) 0.1 %; HCT 39.8 % (37.2-46.3); Lymphocytes # (A) 2.59 X 10*3/uL (0.90-5.00); Lymphocytes % (A) 19.2 %; MCHC 30.2 d/dL (32.0-37.0); MCV 96.1 FL (80.0-97.0); Monocytes # (A) 0.99 X 10*3/uL (0.20-1.00); Monocytes % (A) 7.3 %; NRBC Per 100 WBC 0 X 10*3/uL (0.00-0.01); Neutrophils # (A) 9.82 X 10*3/uL (1.80-7.70); Neutrophils % (A) 72.7 %; Platelet Count 269 X 10*3/uL (140-440); RBC 4.14 X 10*6/uL (4.10-5.20); RDW 13.8 % (11.5-14.5); WBC 13.51 X 10*3/uL (4.50-10.00)
[2022-08-12] MEDS: FLUTICASONE 50MCG/SPRAY NASAL 16GM EA NOSTRIL SCH (12:20)
--- NOTE | 2022-08-12 12:29 | XR ---
EXAMINATION TYPE: XR chest 1V portable DATE OF EXAM: 08/12/2022 12:16 PM COMPARISON: Chest radiographs from 09/12/2009 TECHNIQUE: XR chest 1V portable Portable AP radiograph o f the chest. CLINICAL INDICATION:Female, 67 years old with history of shortness of breath; FINDINGS: Lungs/Pleura: There is no evidence of pleural effusion, focal consolidation, or pneumothorax. Left l ower lobe linear atelectasis. Low lung volumes. Pulmonary vascularity: Unremarkable. Heart/mediastinum: Cardiomediastinal silhouette is unremarkable. Musculoskeletal: No acute osseous pathology. Cervical fusion hardware. Orthopedic anchor within the r ight humeral head. IMPRESSION: Left lower lobe linear atelectasis and low lung lines without evidence for acute pulmonary process.
--- NOTE | 2022-08-12 15:42 | P.CONS ---
History of Present Illness - Reason for Consult Consult date: 08/12/22 Medical management, status post bowel perf sigmoid resection - History of Present Illness This is a 67-year-old female who is undergoing outpatient colonoscopy and had a bowel perforation of one of the diverticulum during the colonoscopy with Dr. bailey. Patient did have scattered sigmoid diverticulosis noted and the scope could not be advanced beyond the sigmoid colon and CT abdomen was ordered and a consult to surgery was placed. CT showed confirmation of free intraperitoneal retroperitoneal air and contrast extravasation from colonic perforation believed to be at the sigmoid colon in the pelvis. Patient was brought to surgery with Dr. Muñoz and underwent lower anterior sigmoid resection postop day 1 today. Admission was to general surgery and we are placed on medical consult as patient follows with Dr. Teresa Muñoz's [employer] Gale Joseph with past medical history of GERD and was told diverticulosis, glaucoma, skin cancer, morbid obesity with a BMI 44.9. Patient does not take medications other than eyedrops multivitamins and aspirin daily in the outpatient setting. Patient is postop and working on her i ncentive spirometer currently on exam and continued on 2 L via nasal cannula and reports she does not were oxygen the outpatient setting. Will obtain chest x- ray. Labs reviewed from this morning and white count slightly elevated most likely reactive at 13.5, hemoglobin is stable at 12. Patient is currently maintained on IV Zosyn and will continue. Would recommend awaiting any advancing and diet until surgery clears. Review Of Systems: Constitutional: No fever, no chills, no night sweats. No weight change. No weakness, fatigue or lethargy. No daytime sleepiness. EENT: No headache. No blurred vision or double vision, no loss of vision. No loss of Hearing, no ringing in the ears, no dizziness. No nasal drainage or congestion. No epistaxis. No sore throat. Lungs: Reports of intermittent shortness of breath, no cough, no sputum production. No wheezing. Cardiovascular: No chest pain, no lower extremity edema. No palpitations. No paroxysmal nocturnal dyspnea. No orthopnea. No lightheadedness or dizziness. No syncopal episodes. Abdominal: Reports abdominal pain. No nausea, vomiting. No diarrhea. No constipation. No bloody or tarry stools.. No loss of appetite. Reports belching with no bowel movement or passing gas as of yet Genitourinary: No dysuria, increased frequency, urgency. No urinary retention. Musculoskeletal: No myalgias. No muscle weakness, no gait dysfunction, no frequent falls. No back pain. No neck pain. Integumentary: No wounds, no lesions. No rash or pruritus. No unusual bruising. No change in hair or nails. Neurologic: No aphasia. No facial droop. No change in mentation. No head injury. No headache. No paralysis. No paresthesia. Psychiatric: No depression. No anxiety. No mood swings. Endocrine: No abnormal blood sugars. No weight change. No excessive sweating or thirst. No cold intolerance. PHYSICAL EXAMINATION: GENERAL: The patient is alert and oriented x4, Well developed, well nourished. Morbidly obese HEENT: Pupils are round and equally reacting to light. EOMI. no scleral icterus. No conjunctival pallor. Normocephalic, atraumatic. No pharyngeal erythema. No thyromegaly. CARDIOVASCULAR: S1 and S2 muffled PULMONARY: diminished breath sounds bilaterally with no wheezing or rhonchi noted. ABDOMEN: soft. mildly tender on exam. obese. non-distended, normoactive bowel sounds. No palpable organomegaly. MUSCULOSKELETAL: No joint swelling or deformity. EXTREMITIES: No cyanosis, clubbing, or pedal edema. NEUROLOGICAL: Gross neurological examination did not reveal any focal deficits. Diffuse weakness SKIN: No rashes. Assessment: Status post sigmoid colon bowel perforation during colonoscopy Status post lower anterior resection secondary to bowel perforation of the sigmoid colon Leukocytosis, likely reactive secondary to bowel surgery yesterday with no evidence of infection at this time Morbid obesity with a BMI of 44.9 Patient reported history of diverticulosis, never diverticulitis and never hospitalized Strong family history of colon cancer GI prophylaxis DVT prophylaxis Full code Plan: Recommend to continue with current medications and management per . Patient was at an elective outpatient colonoscopy and there was concerns for sigmoid perforation in the diverticular area and case was discussed with general surgery patient underwent lower anterior sigmoid resection and being closely monitored postop day #1. Patient had some shortness of breath requiring 2 L of oxygen and chest x-ray obtained showing left lower lobe linear atelectasis and low lung volumes without any evidence of acute pulmonary process. Encourage the patient continue using incentive spirometer at least 10 times every hour while awake Encouraged increased activity as tolerated Patient currently maintained on clear liquid diet and would recommend only surgery advancing the diet Patient with some leukocytosis most likely reactive as patient is afebrile denies shortness of breath or burning with urination. Will follow-up with repeat labs We will continue to follow closely with general surgery during hospitalization. Thank you kindly for this consultation. The impression and plan of care has been dictated by Gabby Wayne, nurse practitioner as directed. Dr. Max MD I have performed a history and examination and MDM of this patient, discussed the same with the dictator, and agree with the dictator's assessment and plan as written ,documented as a scribe. Based on total visit time, I have performed more than 50% of the visit. Any additional findings or plans will be noted. Past Medical History Past Medical History: Cancer, GERD/Reflux Additional Past Medical History / Comment(s): glaucoma, skin cancer History of Any Multi-Drug Resistant Organisms: None Reported Past Surgical History: Orthopedic Surgery, Uterine Ablation Additional Past Surgical History / Comment(s): arthroscopy left knee. left foot. right shoulder. cervical herniated disc with hardware., carpal tunnel release. left ankle. Past Anesthesia/Blood Transfusion Reactions: No Reported Reaction Past Psychological History: No Psychological Hx Reported Smoking Status: Never smoker Past Alcohol Use History: Occasional Past Drug Use History: None Reported - Past Family History Father Family Medical History: Cancer Additional Family Medical History / Comment(s): colon cancer Sister(s) Family Medical History: Cancer Additional Family Medical History / Comment(s): breast cancer Medications and Allergies Home Medications Medication Instructions Recorded Confirmed Type Multivitamins, Thera [Multivitamin 1 tab PO DAILY 09/14/17 08/11/22 History (formulary)] Aspirin [Adult Low Dose Aspirin EC] 81 mg PO DAILY 08/06/22 08/11/22 History Latanoprost Eye Gtts 1 drop BOTH EYES HS 08/06/22 08/11/22 History Allergies Allergy/AdvReac Type Severity Reaction Status Date / Time povidone-iodine Allergy SKIN Verified 08/11/22 08:37 [From Betadine] BREAKDOWN adhesive AdvReac Unknown makes skin Verified 08/11/22 08:37 raw., itchy. Physical Exam Vitals: Vital Signs Temp Pulse Pulse Resp BP BP Pulse Ox 08/12/22 07:42 98.2 F 94 17 115/73 97 08/12/22 00:57 97.4 F L 108 H 19 126/76 96 08/11/22 20:00 18 08/11/22 18:49 104 H 116/82 93 L 08/11/22 18:34 116 H 109/65 95 08/11/22 18:21 112 H 122/66 83 L 08/11/22 18:04 117 H 127/80 92 L 08/11/22 17:49 109 H 109/73 92 L 08/11/22 17:34 110 H 110/78 92 L 08/11/22 17:19 109 H 129/81 91 L 08/11/22 17:04 104 H 126/73 89 L 08/11/22 16:52 103 H 16 152/79 97 08/11/22 16:37 102 H 16 143/84 97 08/11/22 16:22 103 H 18 146/92 99 08/11/22 16:07 99 20 140/68 98 08/11/22 15:52 121 H 22 176/86 96 08/11/22 13:30 68 14 128/62 95 08/11/22 13:05 72 15 122/52 95 08/11/22 12:55 98 15 123/58 95 08/11/22 12:45 97 15 128/63 96 08/11/22 12:24 97.2 F L 105 H 15 130/62 96 08/11/22 11:50 100 16 137/69 97 08/11/22 11:21 99 16 142/77 97 08/11/22 11:10 97 16 147/95 97 08/11/22 10:50 99 16 151/81 94 L Intake and Output 08/11/22 08/12/22 08/12/22 22:59 06:59 14:59 Intake Total 250 1600 Output Total 425 410 Balance -175 1190 Intake: IV 250 Intake, IV Titration 1600 Amount D5-0.45% NaCl with KCl 1500 20Meq/l 1,000 ml @ 125 mls/hr IV .Q8H [facility] Rx#: [id number] Piperacillin-Tazobactam 3 100 .375 gm In Sodium Chloride 0.9% 100 ml @ 25 mls/hr IVPB Q8HR [facility] Rx# :[id number] Output: Drainage 10 Right Abdomen 10 Urine 400 400 Estimated Blood Loss 25 Other: Voiding Method Indwelling Catheter Weight 115.1 kg Results CBC & Chem 7: 08/12/22 06:06 08/11/22 11:56 Labs: Abnormal Lab Results - Last 24 Hours (Table) 08/11/22 Range/Units 11:56 Glucose 105 H (74-99) mg/dL
--- NOTE | 2022-08-12 16:34 | P.PN ---
Subjective Progress Note Date: 08/12/22 CHIEF COMPLAINT: Perforated sigmoid colon HISTORY OF PRESENT ILLNESS: Patient is postop day #1 status post lower anterior sigmoid resection. Patient reports that her pain is tolerable. She denies any nausea vomiting. Denies any flatus. Patient did sit in the chair this morning. She is afebrile. She had been mildly tachycardic this has improved. WBC is up at 13.5 hgb 12.0 platelets 269 patient is on IV antibiotics. Patient does complain of ALLERGY nasal congestion she is asking for nasal spray. Chest x-ray left lower lobe linear atelectasis and low lung lines without evidence for acute pulmonary process PHYSICAL EXAM: VITAL SIGNS: Reviewed. GENERAL: Well-developed in no acute distress. HEENT: No sclera icterus. Extraocular movements grossly intact. Moist buccal mucosa. Head is atraumatic, normocephalic. ABDOMEN: Soft. Mildly distended. Incisional dressing clean dry and intact. UZAIR drain with serosanguineous NEUROLOGIC: Alert and oriented. Cranial nerves II through XII grossly intact. ASSESSMENT: 1. Perforated sigmoid colon during colonoscopy status post lower anterior sigmoid resection 2. Atelectasis 3. Seasonal Allergies with nasal congestion PLAN: -Encouraged patient to use incentive spirometer -Flonase added for nasal congestion -Encouraged patient to increase activity level -Continue pain management -Continue current liquid diet -Continue antibiotics -Repeat CBC in a.m. -Decreased IV fluids to 100 mL per hour -GI prophylaxis Pepcid and DVT prophylaxis subcu heparin Physician Speech Scientist note has been reviewed by physician. Signing provider agrees with the documented findings, assessment, and plan of care. Objective - Vital Signs Vital signs: Vital Signs Temp 98.2 F 08/12/22 07:42 Pulse 94 08/12/22 07:42 Resp 17 08/12/22 07:42 BP 115/73 08/12/22 07:42 Pulse Ox 97 08/12/22 07:42 FiO2 Intake & Output 08/11/22 08/12/22 08/12/22 18:59 06:59 18:59 Intake Total 2250 1600 Output Total 625 410 Balance 1625 1190 Weight 115.1 kg Intake: IV 2250 Intake, IV Titration 1600 Amount D5-0.45% NaCl with KCl 1500 20Meq/l 1,000 ml @ 125 mls/hr IV .Q8H [facility] Rx#: [id number] Piperacillin-Tazobactam 3 100 .375 gm In Sodium Chloride 0.9% 100 ml @ 25 mls/hr IVPB Q8HR [facility] Rx# :[id number] Output: Drainage 10 Right Abdomen 10 Urine 600 400 Estimated Blood Loss 25 Other: Voiding Method Indwelling Catheter Indwelling Catheter - Labs CBC & Chem 7: 08/12/22 06:06 08/11/22 11:56 Labs: Abnormal Lab Results - Last 24 Hours (Table) 08/11/22 08/12/22 Range/Units 11:56 06:06 WBC 13.51 H (4.50-10.00) X 10*3/uL MCHC 30.2 L (32.0-37.0) d/dL Neutrophils # 9.82 H (1.80-7.70) X 10*3/uL Eosinophils # 0.02 L (0.04-0.35) X 10*3/uL Glucose 105 H (74-99) mg/dL
[2022-08-12 17:10] LABS: BUN/Creat Ratio 18.78 Ratio (12.00-20.00); Blood Urea Nitrogen 16.9 mg/dL (9.0-27.0); Calcium 8.5 mg/dL (8.7-10.3); Carbon Dioxide 18.7 mmol/L (21.6-31.8); Chloride 102 mmol/L (96-109); Glucose 116 mg/dL (70-110); Sodium 134 mmol/L (135-145)
[2022-08-12] MEDS: ACETAMINOPHEN TAB 325 MG TAB PO PRN (20:46)
[2022-08-13] MEDS: PIPERACILLIN-TAZOBACTAM 3.375 GM in SODIUM CHLORIDE 0.9% 100 ML IVPB SCH ×3 (00:49→16:21)
[2022-08-13] MEDS: HEPARIN SODIUM,PORCINE/PF 5,000 UNIT/0.5 ML SYRINGE SQ SCH ×3 (00:50→16:21)
[2022-08-13] MEDS: KETOROLAC 15 MG/ML 1 ML VIAL IVP SCH ×3 (00:50→12:54)
[2022-08-13] MEDS: D5-0.45% NACL WITH KCL 20MEQ/L 1,000 ML IV SCH (01:00)
[2022-08-13] MEDS: LACTATED RINGERS 1,000 ML IV SCH (04:41)
[2022-08-13] MEDS: FAMOTIDINE 20 MG/2 ML VIAL IV SCH ×2 (08:26→21:46)
[2022-08-13] MEDS: HYDROcodone/APAP 5-325MG 1 EACH TAB PO PRN ×2 (08:27→17:58)
[2022-08-13 08:37] LABS: Basophils # (A) 0.03 X 10*3/uL (0.00-0.10); Basophils % (A) 0.4 %; Eosinophils # (A) 0.31 X 10*3/uL (0.04-0.35); Eosinophils % (A) 3.7 %; HCT 37.5 % (37.2-46.3); Lymphocytes # (A) 1.74 X 10*3/uL (0.90-5.00); Lymphocytes % (A) 20.6 %; MCH 29.4 pg (27.0-32.0); MCV 91.9 FL (80.0-97.0); Mean Platelet Volume 10.2 FL (9.5-12.2); Monocytes # (A) 0.67 X 10*3/uL (0.20-1.00); Monocytes % (A) 7.9 %; NRBC Per 100 WBC 0 X 10*3/uL (0.00-0.01); Neutrophils # (A) 5.68 X 10*3/uL (1.80-7.70); Platelet Count 262 X 10*3/uL (140-440); RBC 4.08 X 10*6/uL (4.10-5.20); RDW 13.7 % (11.5-14.5); WBC 8.46 X 10*3/uL (4.50-10.00)
[2022-08-13] MEDS: FLUTICASONE 50MCG/SPRAY NASAL 16GM EA NOSTRIL SCH (08:42)
[2022-08-13 09:11] LABS: BUN/Creat Ratio 10.62 Ratio (12.00-20.00); Blood Urea Nitrogen 8.5 mg/dL (9.0-27.0); Calcium 8.7 mg/dL (8.7-10.3); Carbon Dioxide 24.7 mmol/L (21.6-31.8); Chloride 106 mmol/L (96-109); Glucose 107 mg/dL (70-110); Magnesium 1.9 mg/dL (1.5-2.4); Potassium 4.5 mmol/L (3.5-5.5); Sodium 140 mmol/L (135-145)
--- NOTE | 2022-08-13 13:02 | P.PN ---
Subjective Progress Note Date: 08/13/22 CHIEF COMPLAINT: Perforated sigmoid colon HISTORY OF PRESENT ILLNESS: Patient is postop day #2 status post lower anterior sigmoid resection. Patient reports she is feeling better. Her pain is less. She denies any vomiting. She did have some nausea earlier that has improved. She had one small to medium liquidy bloody bowel movement this morning. Her second stool was a small liquidy and brown. She is having flatus. She has been up and ambulating. She's currently sitting at the bedside chair. Bartlett catheter removed this morning. Afebrile. Mild tachycardia improved. WBC down from 13.5 one to 8.46 hemoglobin 12 platelets 262 sodium is 140 potassium 4.5 creatinine 0.8 magnesium 1.9. UZAIR drain output 10 mL PHYSICAL EXAM: VITAL SIGNS: Reviewed. GENERAL: Well-developed in no acute distress. HEENT: No sclera icterus. Extraocular movements grossly intact. Moist buccal mucosa. Head is atraumatic, normocephalic. ABDOMEN: Soft. Nondistended. Incisional dressing clean dry and intact. UZAIR drain with serosanguineous NEUROLOGIC: Alert and oriented. Cranial nerves II through XII grossly intact. ASSESSMENT: 1. Perforated sigmoid colon during colonoscopy status post lower anterior sigmoid resection 2. Atelectasis 3. Seasonal Allergies with nasal congestion PLAN: -Advance diet to full liquid -Abdominal binder ordered -Encouraged patient to use incentive spirometer -Encouraged patient to increase activity level -Continue pain management -Continue antibiotics -Hep-Lock IV -Okay to shower -GI prophylaxis Pepcid and DVT prophylaxis subcu heparin Physician Electrical Products Sales Engineer note has been reviewed by physician. Signing provider agrees with the documented findings, assessment, and plan of care. I have personally seen and examined the patient, reviewed the PAYROLL COORDINATOR /PAs history, exam and MDM and agree with the assessment and plan as written. Based on total visit time, I have performed more than 50% of the visit. As above: Patient doing well today. Had a bowel movement earlier. Tolerating clear liquids. Advance to full liquids. Increase activity. Remove Bartlett catheter. Decrease IV fluid rate. Objective - Vital Signs Vital signs: Vital Signs Temp 98.3 F 08/13/22 07:17 Pulse 99 08/13/22 07:17 Resp 17 08/13/22 07:17 BP 132/83 08/13/22 07:17 Pulse Ox 95 08/13/22 09:38 FiO2 Intake & Output 08/12/22 08/13/22 08/13/22 18:59 06:59 18:59 Intake Total 1600 1200 Output Total 1225 2960 Balance 375 -1760 Intake: IV 1600 1200 D5-0.45% NaCl with KCl 1500 1200 20Meq/l 1,000 ml @ 100 mls/hr IV .Q10H [facility] Rx#: [id number] Piperacillin-Tazobactam 3 100 .375 gm In Sodium Chloride 0.9% 100 ml @ 25 mls/hr IVPB Q8HR [facility] Rx# :[id number] Output: Drainage 10 Right Abdomen 10 Urine 1225 2950 Other: Voiding Method Indwelling Catheter Indwelling Catheter Indwelling Catheter # Bowel Movements 1 - Labs CBC & Chem 7: 08/13/22 06:19 08/13/22 06:19 Labs: Abnormal Lab Results - Last 24 Hours (Table) 08/12/22 08/13/22 08/13/22 Range/Units 06:06 06:19 06:19 RBC 4.08 L (4.10-5.20) X 10*6/uL Sodium 134 L (135-145) mmol/L Carbon Dioxide 18.7 L (21.6-31.8) mmol/L Anion Gap 13.30 H (4.00-12.00) mmol/L BUN 8.5 L (9.0-27.0) mg/dL BUN/Creatinine Ratio 10.62 L (12.00-20.00) Ratio Glucose 116 H (70-110) mg/dL Calcium 8.5 L (8.7-10.3) mg/dL
[2022-08-13] MEDS: DEXTROSE 5%-0.45% NACL 1,000 ML IV SCH (15:49)
[2022-08-14] MEDS: HEPARIN SODIUM,PORCINE/PF 5,000 UNIT/0.5 ML SYRINGE SQ SCH ×3 (00:10→17:16)
[2022-08-14] MEDS: DEXTROSE 5%-0.45% NACL 1,000 ML IV SCH (00:10)
[2022-08-14] MEDS: PIPERACILLIN-TAZOBACTAM 3.375 GM in SODIUM CHLORIDE 0.9% 100 ML IVPB SCH ×3 (00:10→17:16)
[2022-08-14] MEDS: LACTATED RINGERS 1,000 ML IV SCH (04:08)
--- NOTE | 2022-08-14 05:08 | P.PN ---
Subjective Progress Note Date: 08/13/22 - Reason for Consult Consult date: 08/12/22 Medical management, status post bowel perf sigmoid resection - History of Present Illness This is a 67-year-old female who is undergoing outpatient colonoscopy and had a bowel perforation of one of the diverticulum during the colonoscopy with Dr. bailey. Patient did have scattered sigmoid diverticulosis noted and the scope could not be advanced beyond the sigmoid colon and CT abdomen was ordered and a consult to surgery was placed. CT showed confirmation of free intraperitoneal retroperitoneal air and contrast extravasation from colonic perforation believed to be at the sigmoid colon in the pelvis. Patient was brought to surgery with Dr. Muñoz and underwent lower anterior sigmoid resection postop day 1 today. Admission was to general surgery and we are placed on medical consult as patient follows with Dr. Teresa Muñoz's RN CALL CENTER Gale Joseph with past medical history of GERD and was told diverticulosis, glaucoma, skin cancer, morbid obesity with a BMI 44.9. Patient does not take medications other than eyedrops multivitamins and aspirin daily in the outpatient setting. Patient is postop and working on her incentive spirometer currently on exam and continued on 2 L via nasal cannula and reports she does not were oxygen the outpatient setting. Will obtain chest x-ray. Labs reviewed from this morning and white count slightly elevated most likely reactive at 13.5, hemoglobin is stable at 12. Patient is currently maintained on IV Zosyn and will continue. Would recommend awaiting any advancing and diet until surgery clears. 08/13/2022 Patient is seen and evaluated in follow-up today in currently sitting up in the chair awaiting follow-up with surgeon today. Patient reports she is passing gas and had a bowel movement that was somewhat bloody and hemoglobin is stable. Nursing staff made surgery where and monitoring for any further bleeding. Patient denies abdominal pain other than some discomfort at the surgical site but is up and walking. Patient is using incentive spirometer as instructed and has multiple times. Patient currently maintained on clear liquids with surgery advancing diet as tolerated. Patient is afebrile with no reports of chest pain or shortness of breath. No reported nausea or vomiting at this time. Awaiting abdominal binder. Encouraged to increase activity as tolerated and continued incentive spirometer use. Labs Reviewed WBC within normal limits. Review of systems: Constitutional: No reports of fatigue, fever, or chills Cardiovascular: No reports of chest pain or palpitations Respiratory: No reports of shortness of breath or cough GI: No reports of nausea, vomiting, or diarrhea, reports passing gas and did have a bowel movement that had some blood in it : No reports of dysuria or retention Neurovascular: No reports of weakness or numbness All medications have been reviewed PHYSICAL EXAMINATION: GENERAL: The patient is alert and oriented x4, Well developed, well nourished. Morbidly obese HEENT: Pupils are round and equally reacting to light. EOMI. no scleral icterus. No conjunctival pallor. Normocephalic, atraumatic. No pharyngeal erythema. No thyromegaly. CARDIOVASCULAR: S1 and S2 muffled PULMONARY: diminished breath sounds bilaterally with no wheezing or rhonchi noted. ABDOMEN: soft. mildly tender on exam. obese. non-distended, normoactive bowel sounds. No palpable organomegaly. MUSCULOSKELETAL: No joint swelling or deformity. EXTREMITIES: No cyanosis, clubbing, or pedal edema. NEUROLOGICAL: Gross neurological examination did not reveal any focal deficits. Diffuse weakness SKIN: No rashes. Assessment: Status post sigmoid colon bowel perforation during colonoscopy Status post lower anterior resection secondary to bowel perforation of the sigmoid colon Leukocytosis, likely reactive secondary to bowel surgery yesterday with no evidence of infection at this time, resolved Morbid obesity with a BMI of 44.9 Patient reported history of diverticulosis, never diverticulitis and never hospitalized Strong family history of colon cancer GI prophylaxis DVT prophylaxis Full code Plan: Recommend to continue with current medications and management per general surgery. Patient underwent lower anterior sigmoid resection after suspected bowel perforation during colonoscopy and being closely monitored postop day #2. Patient is doing well and is having bowel movements Diet is being advanced per surgery to full liquids Encourage the patient continue using incentive spirometer at least 10 times every hour while awake Encouraged increased activity as tolerated. Patient reports has been up and walking multiple times Follow-up labs show normalized WBC and patient is afebrile. Patient is currently on room air and denies shortness of breath. We will continue to follow closely with general surgery during hospitalization. Thank you kindly for this consultation. The impression and plan of care has been dictated by Gabby Wayne, nurse practitioner as directed. Dr. Max MD I have performed a history and examination and MDM of this patient, discussed the same with the dictator, and agree with the dictator's assessment and plan as written ,documented as a scribe. Based on total visit time, I have performed more than 50 Objective - Vital Signs Vital signs: Vital Signs Temp 98.3 F 08/13/22 07:17 Pulse 99 08/13/22 07:17 Resp 17 08/13/22 07:17 BP 132/83 08/13/22 07:17 Pulse Ox 95 08/13/22 09:38 FiO2 Intake & Output 08/12/22 08/13/22 08/13/22 18:59 06:59 18:59 Intake Total 1600 1200 Output Total 1225 2960 Balance 375 -1760 Intake: IV 1600 1200 D5-0.45% NaCl with KCl 1500 1200 20Meq/l 1,000 ml @ 100 mls/hr IV .Q10H [facility] Rx#: [id number] Piperacillin-Tazobactam 3 100 .375 gm In Sodium Chloride 0.9% 100 ml @ 25 mls/hr IVPB Q8HR [facility] Rx# :[id number] Output: Drainage 10 Right Abdomen 10 Urine 1225 2950 Other: Voiding Method Indwelling Catheter Indwelling Catheter Indwelling Catheter # Bowel Movements 1 - Labs CBC & Chem 7: 08/13/22 06:19 08/13/22 06:19 Labs: Abnormal Lab Results - Last 24 Hours (Table) 08/12/22 08/12/22 08/13/22 Range/Units 06:06 06:06 06:19 WBC 13.51 H (4.50-10.00) X 10*3/uL RBC 4.08 L (4.10-5.20) X 10*6/uL MCHC 30.2 L (32.0-37.0) d/dL Neutrophils # 9.82 H (1.80-7.70) X 10*3/uL Eosinophils # 0.02 L (0.04-0.35) X 10*3/uL Sodium 134 L (135-145) mmol/L Carbon Dioxide 18.7 L (21.6-31.8) mmol/L Anion Gap 13.30 H (4.00-12.00) mmol/L BUN (9.0-27.0) mg/dL BUN/Creatinine Ratio (12.00-20.00) Ratio Glucose 116 H (70-110) mg/dL Calcium 8.5 L (8.7-10.3) mg/dL 08/13/22 Range/Units 06:19 WBC (4.50-10.00) X 10*3/uL RBC (4.10-5.20) X 10*6/uL MCHC (32.0-37.0) d/dL Neutrophils # (1.80-7.70) X 10*3/uL Eosinophils # (0.04-0.35) X 10*3/uL Sodium (135-145) mmol/L Carbon Dioxide (21.6-31.8) mmol/L Anion Gap (4.00-12.00) mmol/L BUN 8.5 L (9.0-27.0) mg/dL BUN/Creatinine Ratio 10.62 L (12.00-20.00) Ratio Glucose (70-110) mg/dL Calcium (8.7-10.3) mg/dL
[2022-08-14] MEDS: ACETAMINOPHEN TAB 325 MG TAB PO PRN (09:25)
[2022-08-14] MEDS: FAMOTIDINE 20 MG/2 ML VIAL IV SCH ×2 (09:26→21:15)
[2022-08-14] MEDS: FLUTICASONE 50MCG/SPRAY NASAL 16GM EA NOSTRIL SCH (09:58)
--- NOTE | 2022-08-14 15:12 | P.PN ---
Subjective Progress Note Date: 08/14/22 CHIEF COMPLAINT: Perforated sigmoid colon HISTORY OF PRESENT ILLNESS: Patient is postop day #3 status post lower anterior sigmoid resection. Patient reports she is feeling better. She's sitting up at bedside chair. She tolerated the full liquid diet. She did have some nausea earlier this resolved. She is complaining of her urinary frequency which is chronic for her. She's had no further bowel movements since the 2 yesterday. Afebrile. Heart rate 106. WBC is down from 13-8.46 hemoglobin 12 platelets 260-7140 potassium is 4.5 creatinine 0.8. UZAIR drain 5 mL serosanguineous output PHYSICAL EXAM: VITAL SIGNS: Reviewed. GENERAL: Well-developed in no acute distress. HEENT: No sclera icterus. Extraocular movements grossly intact. Moist buccal mucosa. Head is atraumatic, normocephalic. ABDOMEN: Soft. Nondistended. Incisional dressing clean dry and intact. UZAIR drain with serosanguineous NEUROLOGIC: Alert and oriented. Cranial nerves II through XII grossly intact. ASSESSMENT: 1. Perforated sigmoid colon during colonoscopy status post lower anterior sigmoid resection 2. Atelectasis 3. Seasonal Allergies with nasal congestion PLAN: -Continue full liquid diet -Encouraged patient to use incentive spirometer -Encouraged patient to increase activity level -Continue pain management -Continue antibiotics -Discontinue IV fluids -GI prophylaxis Pepcid and DVT prophylaxis subcu heparin Physician Cst note has been reviewed by physician. Signing provider agrees with the documented findings, assessment, and plan of care. I have personally seen and examined the patient, reviewed the PATIENT OBSERVER /PAs history, exam and MDM and agree with the assessment and plan as written. Based on total visit time, I have performed more than 50% of the visit. As above: Patient had a small amount of flatus. No bowel movement. No nausea. Tolerating full. Continue ambulation. Reevaluate tomorrow. Objective - Vital Signs Vital signs: Vital Signs Temp 98.3 F 08/14/22 07:11 Pulse 100 08/14/22 07:11 Resp 18 08/14/22 07:11 BP 145/76 08/14/22 07:11 Pulse Ox 96 08/14/22 07:11 FiO2 Intake & Output 08/13/22 08/14/22 08/14/22 18:59 06:59 18:59 Output Total 810 Balance -810 Output: Drainage 10 Right Abdomen 10 Urine 800 Other: Voiding Method Indwelling Catheter Toilet Toilet # Bowel Movements 1 - Labs CBC & Chem 7: 08/13/22 06:19 08/13/22 06:19
--- NOTE | 2022-08-14 21:05 | P.PN ---
Subjective Progress Note Date: 08/14/22 - Reason for Consult Consult date: 08/12/22 Medical management, status post bowel perf sigmoid resection - History of Present Illness This is a 67-year-old female who is undergoing outpatient colonoscopy and had a bowel perforation of one of the diverticulum during the colonoscopy with Dr. bailey. Patient did have scattered sigmoid diverticulosis noted and the scope could not be advanced beyond the sigmoid colon and CT abdomen was ordered and a consult to surgery was placed. CT showed confirmation of free intraperitoneal retroperitoneal air and contrast extravasation from colonic perforation believed to be at the sigmoid colon in the pelvis. Patient was brought to surgery with Dr. Muñoz and underwent lower anterior sigmoid resection postop day 1 today. Admission was to general surgery and we are placed on medical consult as patient follows with Dr. Teresa Muñoz's [facility] Joseph with past medical history of GERD and was told diverticulosis, glaucoma, skin cancer, morbid obesity with a BMI 44.9. Patient does not take medications other than eyedrops multivitamins and aspirin daily in the outpatient setting. Patient is postop and working on her incentive spirometer currently on exam and continued on 2 L via nasal cannula and reports she does not were oxygen the outpatient setting. Will obtain chest x-ray. Labs reviewed from this morning and white count slightly elevated most likely reactive at 13.5, hemoglobin is stable at 12. Patient is currently maintained on IV Zosyn and will continue. Would recommend awaiting any advancing and diet until surgery clears. 08/13/2022 Patient is seen and evaluated in follow-up today in currently sitting up in the chair awaiting follow-up with surgeon today. Patient reports she is passing gas and had a bowel movement that was somewhat bloody and hemoglobin is stable. Nursing staff made surgery where and monitoring for any further bleeding. Patient denies abdominal pain other than some discomfort at the surgical site but is up and walking. Patient is using incentive spirometer as instructed and has multiple times. Patient currently maintained on clear liquids with surgery advancing diet as tolerated. Patient is afebrile with no reports of chest pain or shortness of breath. No reported nausea or vomiting at this time. Awaiting abdominal binder. Encouraged to increase activity as tolerated and continued incentive spirometer use. Labs Reviewed WBC within normal limits. 08/14/2022 Patient seen and evaluated in follow-up and reports to feeling well. Patient was continued on IV fluids and reports to having to urinate at least once every hour. Patient is maintained on full liquids for surgery and would recommend discontinuing fluids. Patient also reports to having some slight cough most likely from IV fluids. Encouraged increased incentive spirometer use at least 10 times every hour while awake. Patient also encouraged to ambulate more f requently. Patient reports passing gas and has had no further bowel movements since yesterday. Patient reports her second bowel movement was nonbloody. Patient is afebrile with no reports of chest pain or palpitations. Patient reports to feeling slightly winded with increased exertion although denies shortness of breath. Patient reports she did not sleep very well last night and is anticipating being able to go home soon. Review of systems: Constitutional: No reports of fatigue, fever, or chills Cardiovascular: No reports of chest pain or palpitations Respiratory: reports of intermittent shortness of breath with exertion and dry cough GI: No reports of nausea, vomiting, or diarrhea, reports passing gas and did have a bowel movement that had some blood in it, second bowel movement had no blood : No reports of dysuria or retention Neurovascular: No reports of weakness or numbness All medications have been reviewed PHYSICAL EXAMINATION: GENERAL: The patient is alert and oriented x4, Well developed, well nourished. Morbidly obese HEENT: Pupils are round and equally reacting to light. EOMI. no scleral icterus. No conjunctival pallor. Normocephalic, atraumatic. No pharyngeal erythema. No thyromegaly. CARDIOVASCULAR: S1 and S2 muffled PULMONARY: diminished breath sounds bilaterally with no wheezing or rhonchi noted. ABDOMEN: soft. mildly tender on exam. obese. non-distended, normoactive bowel sounds. No palpable organomegaly. MUSCULOSKELETAL: No joint swelling or deformity. EXTREMITIES: No cyanosis, clubbing, or pedal edema. NEUROLOGICAL: Gross neurological examination did not reveal any focal deficits. Diffuse weakness SKIN: No rashes. Assessment: Status post sigmoid colon bowel perforation during colonoscopy Status post lower anterior resection secondary to bowel perforation of the sigmoid colon Leukocytosis, likely reactive secondary to bowel surgery yesterday with no evidence of infection at this time, resolved Morbid obesity with a BMI of 44.9 Patient reported history of diverticulosis, never diverticulitis and never hospitalized Strong family history of colon cancer GI prophylaxis DVT prophylaxis Full code Plan: Recommend to continue with current medications and management per general surgery. Patient underwent lower anterior sigmoid resection after suspected bowel perforation during colonoscopy and being closely monitored postop day #3. Patient is doing well and is having bowel movements Diet has been low advanced per surgery to full liquids Encourage the patient continue using incentive spirometer at least 10 times ever y hour while awake Encouraged increased activity as tolerated. Patient reports has been up and walking multiple times Patient is medically stable at this time. Patient to be reevaluated by surgery tomorrow and diet possibly advanced and patient discussing possibility of going home by Wednesday. We will continue to follow closely with general surgery during hospitalization. Thank you kindly for this consultation. The impression and plan of care has been dictated by Gabby Wayne, nurse practitioner as directed. Dr. Max MD I have performed a history and examination and MDM of this patient, discussed the same with the dictator, and agree with the dictator's assessment and plan as written ,documented as a scribe. Based on total visit time, I have performed more than 50 Objective - Vital Signs Vital signs: Vital Signs Temp 98.4 F 08/14/22 18:44 Pulse 106 H 08/14/22 18:44 Resp 18 08/14/22 18:44 BP 143/82 08/14/22 18:44 Pulse Ox 96 08/14/22 18:44 FiO2 Intake & Output 08/14/22 08/14/22 08/15/22 06:59 18:59 06:59 Intake Total 1080 Output Total 810 10 Balance -810 1070 Intake: Oral 1080 Output: Drainage 10 10 Right Abdomen 10 10 Urine 800 Other: Voiding Method Toilet Toilet # Voids 3 - Labs CBC & Chem 7: 08/13/22 06:19 08/13/22 06:19
[2022-08-15] MEDS: HEPARIN SODIUM,PORCINE/PF 5,000 UNIT/0.5 ML SYRINGE SQ SCH ×3 (00:41→16:47)
[2022-08-15] MEDS: PIPERACILLIN-TAZOBACTAM 3.375 GM in SODIUM CHLORIDE 0.9% 100 ML IVPB SCH ×3 (00:42→16:48)
[2022-08-15] MEDS: HYDROcodone/APAP 5-325MG 1 EACH TAB PO PRN (00:52)
[2022-08-15 08:16] LABS: Basophils % (A) 0 %; Eosinophils # (A) 0.4 k/uL (0-0.7); Eosinophils % (A) 6 %; HCT 40.8 % (34.0-46.0); HGB 13.3 gm/dL (11.4-16.0); Lymphocytes # (A) 1.7 k/uL (1.0-4.8); Lymphocytes % (A) 25 %; MCH 29.6 pg (25.0-35.0); MCHC 32.5 g/dL (31.0-37.0); Mean Platelet Volume 8.3; Monocytes # (A) 0.5 k/uL (0-1.0); Monocytes % (A) 7 %; Neutrophils # (A) 4.1 k/uL (1.3-7.7); Neutrophils % (A) 61 %; Platelet Count 339 k/uL (150-450); RBC 4.49 m/uL (3.80-5.40); RDW 13.1 % (11.5-15.5); WBC 6.7 k/uL (3.8-10.6)
[2022-08-15] MEDS: ACETAMINOPHEN TAB 325 MG TAB PO PRN ×2 (08:37→14:50)
[2022-08-15] MEDS: FAMOTIDINE 20 MG/2 ML VIAL IV SCH ×2 (08:39→21:47)
[2022-08-15] MEDS: FLUTICASONE 50MCG/SPRAY NASAL 16GM EA NOSTRIL SCH (09:16)
--- NOTE | 2022-08-15 09:48 | P.PN ---
Subjective Progress Note Date: 08/15/22 Principal diagnosis: Colon perforation Patient doing better today. He is passing flatus. No further bowel movements. Tolerating diet. No nausea or vomiting. Objective - Vital Signs Vital signs: Vital Signs Temp 98.0 F 08/15/22 07:56 Pulse 91 08/15/22 07:56 Resp 16 08/15/22 07:56 BP 150/83 08/15/22 07:56 Pulse Ox 93 L 08/15/22 07:56 FiO2 Intake & Output 08/14/22 08/15/22 08/15/22 18:59 06:59 18:59 Intake Total 1080 Output Total 10 Balance 1070 Intake: Oral 1080 Output: Drainage 10 Right Abdomen 10 Other: Voiding Method Toilet Toilet # Voids 3 - Exam Abdomen: Soft, nondistended, incision clean and dry, minimal tenderness - Labs CBC & Chem 7: 08/15/22 07:03 08/13/22 06:19 Assessment and Plan (1) Colon perforation Narrative/Plan: 67-year-old female doing well after recent sigmoid colectomy. Continue slowly advancing diet. Ambulate. Possible discharge tomorrow. Current Visit: Yes Status: Acute Code(s): K63.1 - PERFORATION OF INTESTINE (NONTRAUMATIC) SNOMED Code(s): 32760767
[2022-08-15] MEDS ORDERED: HYDROCORTISONE 1% CREAM 30 GM TUBE TOPICAL PRN (15:33)
--- NOTE | 2022-08-15 15:34 | P.PN ---
Subjective Progress Note Date: 08/15/22 This is a 67-year-old female who is undergoing outpatient colonoscopy and had a bowel perforation of one of the diverticulum during the colonoscopy with Dr. bailey. Patient did have scattered sigmoid diverticulosis noted and the scope could not be advanced beyond the sigmoid colon and CT abdomen was ordered and a consult to surgery was placed. CT showed confirmation of free intraperitoneal retroperitoneal air and contrast extravasation from colonic perforation believed to be at the sigmoid colon in the pelvis. Patient was brought to surgery with Dr. Muñoz and underwent lower anterior sigmoid resection postop day 1 today. Admission was to general surgery and we are placed on medical consult as patient follows with Dr. Teresa Muñoz's [employer] DES[employer] Gale Joseph with past medical history of GERD and was told diverticulosis, glaucoma, skin cancer, morbid obesity with a BMI 44.9. Patient does not take medications other than eyedrops multivitamins and aspirin daily in the outpatient setting. Patient is postop and working on her incentive spirometer currently on exam and continued on 2 L via nasal cannula and reports she does not were oxygen the outpatient setting. Will obtain chest x-ray. Labs reviewed from this morning and white count slightly elevated most likely reactive at 13.5, hemoglobin is stable at 12. Patient is currently maintained on IV Zosyn and will continue. Would recommend awaiting any advancing and diet until surgery clears. 08/13/2022 Patient is seen and evaluated in follow-up today in currently sitting up in the chair awaiting follow-up with surgeon today. Patient reports she is passing gas and had a bowel movement that was somewhat bloody and hemoglobin is stable. Nursing staff made surgery where and monitoring for any further bleeding. Patient denies abdominal pain other than some discomfort at the surgical site but is up and walking. Patient is using incentive spirometer as instructed and has multiple times. Patient currently maintained on clear liquids with surgery advancing diet as tolerated. Patient is afebrile with no reports of chest pain or shortness of breath. No reported nausea or vomiting at this time. Awaiting abdominal binder. Encouraged to increase activity as tolerated and continued incentive spirometer use. Labs Reviewed WBC within normal limits. 08/14/2022 Patient seen and evaluated in follow-up and reports to feeling well. Patient was continued on IV fluids and reports to having to urinate at least once every hour. Patient is maintained on full liquids for surgery and would recommend discontinuing fluids. Patient also reports to having some slight cough most likely from IV fluids. Encouraged increased incentive spirometer use at least 10 times every hour while awake. Patient also encouraged to ambulate more preet quently. Patient reports passing gas and has had no further bowel movements since yesterday. Patient reports her second bowel movement was nonbloody. Patient is afebrile with no reports of chest pain or palpitations. Patient reports to feeling slightly winded with increased exertion although denies shortness of breath. Patient reports she did not sleep very well last night and is anticipating being able to go home soon. 08/15/2022 Patient is evaluated today sitting up in the chair, family at the bedside. Patient has been evaluated by general surgery today and diet is being advanced to low fiber with plans for possible DC home tomorrow. Patient is wearing abdominal binder, does state the fabric made her itchy and has nonspecific rash on abdomen will add hydrocortisone cream as needed. Review of systems: Constitutional: No reports of fatigue, fever, or chills Cardiovascular: No reports of chest pain or palpitations Respiratory: reports of intermittent shortness of breath with exertion and dry cough GI: No reports of nausea, vomiting, or diarrhea, reports passing gas and had a nonbloody BM. : No reports of dysuria or retention Neurovascular: No reports of weakness or numbness All medications have been reviewed PHYSICAL EXAMINATION: GENERAL: The patient is alert and oriented x4, Well developed, well nourished. Morbidly obese HEENT: Pupils are round and equally reacting to light. EOMI. no scleral icterus. No conjunctival pallor. Normocephalic, atraumatic. No pharyngeal erythema. No thyromegaly. CARDIOVASCULAR: S1 and S2 muffled PULMONARY: diminished breath sounds bilaterally with no wheezing or rhonchi noted. ABDOMEN: soft. mildly tender on exam. obese. non-distended, normoactive bowel sounds. No palpable organomegaly. MUSCULOSKELETAL: No joint swelling or deformity. EXTREMITIES: No cyanosis, clubbing, or pedal edema. NEUROLOGICAL: Gross neurological examination did not reveal any focal deficits. Diffuse weakness SKIN: No rashes. Assessment: Status post sigmoid colon bowel perforation during colonoscopy Status post lower anterior resection secondary to bowel perforation of the sigmoid colon Leukocytosis, likely reactive secondary to bowel surgery yesterday with no evidence of infection at this time, resolved Morbid obesity with a BMI of 44.9 Patient reported history of diverticulosis, never diverticulitis and never hospitalized Strong family history of colon cancer GI prophylaxis DVT prophylaxis Full code Plan: Recommend to continue with current medications and management per general surgery. Patient underwent lower anterior sigmoid resection after suspected bowel perforation during colonoscopy and being closely monitored postop day #4. Patient is doing well and is having bowel movements. Diet is advanced to low fiber per primary services. Encourage the patient continue using incentive spirometer at least 10 times ev fallon hour while awake Encouraged increased activity as tolerated. Patient reports has been up and wa lking multiple times Patient is medically stable at this time. Possible D/C home tomorrow. We will continue to follow closely with general surgery during hospitalization. Thank you kindly for this consultation. The impression and plan of care has been dictated by Julia Patrick, Nurse Practitioner as directed. Dr. Max MD I have performed a history and physical examination and medical decision making of this patient, discussed the same with the dictator, and agree with the dictators assessment and plan as written, documented as a scribe. Based on total visit time, I have performed more than 50% of this visit. Objective - Vital Signs Vital signs: Vital Signs Temp 97.9 F 08/15/22 14:59 Pulse 99 08/15/22 14:59 Resp 16 08/15/22 14:59 BP 167/71 08/15/22 14:59 Pulse Ox 97 08/15/22 14:59 FiO2 Intake & Output 08/14/22 08/15/22 08/15/22 18:59 06:59 18:59 Intake Total 1080 1080 Output Total 10 Balance 1070 1080 Intake: Oral 1080 1080 Output: Drainage 10 Right Abdomen 10 Other: Voiding Method Toilet Toilet Toilet # Voids 3 - Labs CBC & Chem 7: 08/15/22 07:03 08/13/22 06:19 Assessment and Plan Time with Patient: Less than 30
[2022-08-15] MEDS: LACTATED RINGERS 1,000 ML IV SCH (16:56)
[2022-08-15 20:24] VITALS: RESP 18
[2022-08-16] MEDS: PIPERACILLIN-TAZOBACTAM 3.375 GM in SODIUM CHLORIDE 0.9% 100 ML IVPB SCH ×2 (01:02→08:55)
[2022-08-16] MEDS: HEPARIN SODIUM,PORCINE/PF 5,000 UNIT/0.5 ML SYRINGE SQ SCH ×2 (01:02→08:56)
[2022-08-16] MEDS: LACTATED RINGERS 1,000 ML IV SCH (06:20)
[2022-08-16 07:44] VITALS: BP 130/81; PULSE 88; TEMP 98.2
[2022-08-16] MEDS: FAMOTIDINE 20 MG/2 ML VIAL IV SCH (08:55)
[2022-08-16] MEDS: FLUTICASONE 50MCG/SPRAY NASAL 16GM EA NOSTRIL SCH (08:56)
--- NOTE | 2022-08-16 10:14 | P.DS ---
Providers Date of admission: 08/11/22 17:22 Expected date of discharge: 08/16/22 Attending physician: Kyler Muñoz Consults: 08/11/22 16:03 Consult Physician Routine Consulting Provider: Chayito Benz Consult Reason/Comments: Medical management Do you want consulting provider notified?: Yes 08/12/22 10:35 Consult Physician Routine Consulting Provider: Paula Santana Consult Reason/Comments: medical management Do you want consulting provider notified?: Already Contacted Primary care physician: Teresa Muñoz - Discharge Diagnosis(es) (1) Colon perforation 67-year-old female admitted after colon perforation during colonoscopy. Underwent sigmoid colectomy. She is doing well today. Multiple bowel movements last night. Pain is well-controlled. She would like to go home. She is tolerating her diet. We'll continue oral antibiotics postdischarge. No narcotics post discharge. Follow-up one week. Current Visit: Yes Status: Acute Plan - Discharge Summary Discharge Rx Participant: Yes New Discharge Prescriptions: New Hydrocortisone Cream [Hydrocortisone 1% Cream] 1 applic TOPICAL BID PRN each PRN Reason: Skin Irritation Fluticasone Nasal [place] [Flonase Nasal [place]] 2 spray EA NOSTRIL DAILY ml Famotidine [Pepcid] 20 mg PO BID #60 tablet Continue Multivitamins, Thera [Multivitamin (formulary)] 1 tab PO DAILY Aspirin [Adult Low Dose Aspirin EC] 81 mg PO DAILY Latanoprost Eye Gtts 1 drop BOTH EYES HS Discharge Medication List Multivitamins, Thera [Multivitamin (formulary)] 1 tab PO DAILY 09/14/17 [History] Aspirin [Adult Low Dose Aspirin EC] 81 mg PO DAILY 08/06/22 [History] Latanoprost Eye Gtts 1 drop BOTH EYES HS 08/06/22 [History] Famotidine [Pepcid] 20 mg PO BID #60 tablet 08/16/22 [Rx] Fluticasone Nasal [place] [Flonase Nasal [place]] 2 spray EA NOSTRIL DAILY ml 08/16/22 [Rx] Hydrocortisone Cream [Hydrocortisone 1% Cream] 1 applic TOPICAL BID PRN each 08/16/22 [Rx] Follow up Appointment(s)/Referral(s): Kyler Muñoz MD [Medical Doctor] - 1 Week Teresa Muñoz MD [Primary Care Provider] - 1-2 Days Chayito Benz MD [STAFF PHYSICIAN] - 1 Week Ambulatory/Diagnostic Orders: Basic Metabolic Panel [LAB.AMB] Location: None Selected Complete Blood Count w/diff [LAB.AMB] Time Frame: 3 Days, Location: None Selected Magnesium [LAB.AMB] Location: None Selected Patient Instructions/Handouts: Bowel Resection (DC) Activity/Diet/Wound Care/Special Instructions: Continue incentive spirometer 10 x an hour while awake Repeat labs in 2 to 3 days Follow up with your PCP in 1 to 2 days Discharge Disposition: HOME SELF-CARE
--- NOTE | 2022-08-16 14:53 | P.PN ---
Subjective Progress Note Date: 08/16/22 This is a 67-year-old female who is undergoing outpatient colonoscopy and had a bowel perforation of one of the diverticulum during the colonoscopy with Dr. bailey. Patient did have scattered sigmoid diverticulosis noted and the scope could not be advanced beyond the sigmoid colon and CT abdomen was ordered and a consult to surgery was placed. CT showed confirmation of free intraperitoneal retroperitoneal air and contrast extravasation from colonic perforation believed to be at the sigmoid colon in the pelvis. Patient was brought to surgery with Dr. Muñoz and underwent lower anterior sigmoid resection postop day 1 today. Admission was to general surgery and we are placed on medical consult as patient follows with Dr. Teresa Muñoz's [employer] FOREM[employer] Gale Joseph with past medical history of GERD and was told diverticulosis, glaucoma, skin cancer, morbid obesity with a BMI 44.9. Patient does not take medications other than eyedrops multivitamins and aspirin daily in the outpatient setting. Patient is postop and working on her incentive spirometer currently on exam and continued on 2 L via nasal cannula and reports she does not were oxygen the outpatient setting. Will obtain chest x-ray. Labs reviewed from this morning and white count slightly elevated most likely reactive at 13.5, hemoglobin is stable at 12. Patient is currently maintained on IV Zosyn and will continue. Would recommend awaiting any advancing and diet until surgery clears. 08/13/2022 Patient is seen and evaluated in follow-up today in currently sitting up in the chair awaiting follow-up with surgeon today. Patient reports she is passing gas and had a bowel movement that was somewhat bloody and hemoglobin is stable. Nursing staff made surgery where and monitoring for any further bleeding. Patient denies abdominal pain other than some discomfort at the surgical site but is up and walking. Patient is using incentive spirometer as instructed and has multiple times. Patient currently maintained on clear liquids with surgery advancing diet as tolerated. Patient is afebrile with no reports of chest pain or shortness of breath. No reported nausea or vomiting at this time. Awaiting abdominal binder. Encouraged to increase activity as tolerated and continued incentive spirometer use. Labs Reviewed WBC within normal limits. 08/14/2022 Patient seen and evaluated in follow-up and reports to feeling well. Patient was continued on IV fluids and reports to having to urinate at least once every hour. Patient is maintained on full liquids for surgery and would recommend discontinuing fluids. Patient also reports to having some slight cough most likely from IV fluids. Encouraged increased incentive spirometer use at least 10 times every hour while awake. Patient also encouraged to ambulate more preet quently. Patient reports passing gas and has had no further bowel movements since yesterday. Patient reports her second bowel movement was nonbloody. Patient is afebrile with no reports of chest pain or palpitations. Patient reports to feeling slightly winded with increased exertion although denies shortness of breath. Patient reports she did not sleep very well last night and is anticipating being able to go home soon. 08/15/2022 Patient is evaluated today sitting up in the chair, family at the bedside. Patient has been evaluated by general surgery today and diet is being advanced to low fiber with plans for possible DC home tomorrow. Patient is wearing abdominal binder, does state the fabric made her itchy and has nonspecific rash on abdomen will add hydrocortisone cream as needed. 08/16/2022 Patient evaluated today sitting up in chair. Wearing abdominal binder outside of clothing abdominal rash has improved with hydrocortisone cream. Patient is having bowel movements. No abdominal pain, no nausea or vomiting. Tolerating diet. Medically patient is cleared for discharge. Review of systems: Constitutional: No reports of fatigue, fever, or chills Cardiovascular: No reports of chest pain or palpitations Respiratory: reports of intermittent shortness of breath with exertion and dry cough GI: No reports of nausea, vomiting, or diarrhea, reports passing gas and had a nonbloody BM. : No reports of dysuria or retention Neurovascular: No reports of weakness or numbness All medications have been reviewed PHYSICAL EXAMINATION: GENERAL: The patient is alert and oriented x4, Well developed, well nourished. Morbidly obese HEENT: Pupils are round and equally reacting to light. EOMI. no scleral icterus. No conjunctival pallor. Normocephalic, atraumatic. No pharyngeal erythema. No thyromegaly. CARDIOVASCULAR: S1 and S2 muffled PULMONARY: diminished breath sounds bilaterally with no wheezing or rhonchi noted. ABDOMEN: soft. mildly tender on exam. obese. non-distended, normoactive bowel sounds. No palpable organomegaly. MUSCULOSKELETAL: No joint swelling or deformity. EXTREMITIES: No cyanosis, clubbing, or pedal edema. NEUROLOGICAL: Gross neurological examination did not reveal any focal deficits. Diffuse weakness SKIN: No rashes. Assessment: Status post sigmoid colon bowel perforation during colonoscopy Status post lower anterior resection secondary to bowel perforation of the sigmoid colon Leukocytosis, likely reactive secondary to bowel surgery yesterday with no evidence of infection at this time, resolved Morbid obesity with a BMI of 44.9 Patient reported history of diverticulosis, never diverticulitis and never hospitalized Strong family history of colon cancer GI prophylaxis DVT prophylaxis Full code Plan: Recommend to continue with current medications and management per general surgery. Patient underwent lower anterior sigmoid resection after suspected bowel perforation during colonoscopy and being closely monitored postop day #5. Patient is doing well and is having bowel movements. Diet is advanced to low fiber per primary services. Encourage the patient continue using incentive spirometer at least 10 times every hour while awake Encouraged increased activity as tolerated. Patient reports has been up and walking multiple times Patient is medically stable at this time and cleared for discharge home. We will continue to follow closely with general surgery during hospitalization. Thank you kindly for this consultation. The impression and plan of care has been dictated by Julia Patrick, Nurse Practitioner as directed. Dr. Mxa MD I have performed a history and physical examination and medical decision making of this patient, discussed the same with the dictator, and agree with the dictators assessment and plan as written, documented as a scribe. Based on total visit time, I have performed more than 50% of this visit. Objective - Vital Signs Vital signs: Vital Signs Temp 98.2 F 08/16/22 07:43 Pulse 88 08/16/22 07:43 Resp 18 08/16/22 07:43 BP 130/81 08/16/22 07:43 Pulse Ox 94 L 08/16/22 08:02 FiO2 Intake & Output 08/15/22 08/16/22 08/16/22 18:59 06:59 18:59 Intake Total 1280 Output Total 2 Balance 1278 Intake: Oral 1280 Output: Drainage 2 Right Abdomen 2 Other: Voiding Method Toilet Toilet Toilet - Labs CBC & Chem 7: 08/15/22 07:03 08/13/22 06:19 Assessment and Plan Time with Patient: Less than 30
== END 2022-08-16 13:15 | disposition home or self-care (01) | DRG 908 ==
LOC: ORWHC2ENDO 08:00 → 4SSUR 15:38 → ORWHC2ENDO 15:44 → UNDOADMIN 15:44 → 4SSUR 17:22
PROVIDERS: ADMIT Surgery; ATTEND Surgery
PROC: 0DJD8ZZ Inspection of Lower Intestinal Tract, Via Natural or Artificial Opening Endoscopic (ICD-10-PCS; 2022-08-11)
PROC: 0DTN0ZZ Resection of Sigmoid Colon, Open Approach (ICD-10-PCS; principal; 2022-08-11 07:30)
DX: K91.71 Accidental puncture and laceration of a digestive system organ or structure during a digestive system procedure (principal); J98.11 Atelectasis; K57.20 Diverticulitis of large intestine with perforation and abscess without bleeding; T80.818A Extravasation of other vesicant agent, initial encounter; Z68.41 Body mass index [BMI] 40.0-44.9, adult; Y83.8 Other surgical procedures as the cause of abnormal reaction of the patient, or of later complication, without mention of misadventure at the time of the procedure; J30.2 Other seasonal allergic rhinitis; K21.9 Gastro-esophageal reflux disease without esophagitis; E66.01 Morbid (severe) obesity due to excess calories; Z80.0 Family history of malignant neoplasm of digestive organs; Z79.82 Long term (current) use of aspirin; Z80.3 Family history of malignant neoplasm of breast; Z85.828 Personal history of other malignant neoplasm of skin; Z88.8 Allergy status to other drugs, medicaments and biological substances
CPT/HCPCS: 45378; 64488; 71045; 74177; 80048; 80053; 83735; 85025; 88307; 94760

== ENCOUNTER → 2022-08-17 | Outpatient (CLI) | payer BC ==
[2022-08-17 16:24] LABS: BUN/Creat Ratio 15.22 Ratio (12.00-20.00); Blood Urea Nitrogen 13.7 mg/dL (9.0-27.0); Calcium 9.6 mg/dL (8.7-10.3); Carbon Dioxide 24.7 mmol/L (21.6-31.8); Chloride 103 mmol/L (96-109); Glucose 102 mg/dL (70-110); Potassium 4.5 mmol/L (3.5-5.5); Sodium 140 mmol/L (135-145)
[2022-08-17 18:23] LABS: Basophils # (A) 0.03 X 10*3/uL (0.00-0.10); Basophils % (A) 0.4 %; Eosinophils # (A) 0.36 X 10*3/uL (0.04-0.35); Eosinophils % (A) 4.6 %; HCT 38.9 % (37.2-46.3); HGB 12.6 d/dL (12.0-15.0); Lymphocytes % (A) 25.3 %; MCHC 32.4 d/dL (32.0-37.0); MCV 89.6 FL (80.0-97.0); Mean Platelet Volume 10.3 FL (9.5-12.2); Monocytes # (A) 0.62 X 10*3/uL (0.20-1.00); Monocytes % (A) 7.9 %; NRBC Per 100 WBC 0 X 10*3/uL (0.00-0.01); Neutrophils # (A) 4.81 X 10*3/uL (1.80-7.70); Neutrophils % (A) 60.9 %; Platelet Count 344 X 10*3/uL (140-440); RBC 4.34 X 10*6/uL (4.10-5.20); RDW 13.2 % (11.5-14.5); WBC 7.89 X 10*3/uL (4.50-10.00)
== END | disposition home or self-care (01) ==
LOC: LABWHC1 10:52
PROVIDERS: ATTEND Nurse Practitioner Family
DX: Z90.49 Acquired absence of other specified parts of digestive tract (principal)
CPT/HCPCS: 36415; 80048; 83735; 85025

== ENCOUNTER → 2023-07-26 | Outpatient (CLI) | payer BC ==
--- NOTE | 2023-07-27 09:12 | MM ---
Reason for Exam: Screening (asymptomatic). Last screening mammogram was performed 12 month(s) ago. Patient History: Menarche at age 15. Patient has no children. Postmenopausal. Progesterone for 5 months. Patient used Hormonal Contraceptives for 15 years. Sister had breast cancer, age 49. Risk Values: Jordyn 5 year model risk: 3.3%. NCI Lifetime model risk: 11.5%. Prior Study Comparison: 05/31/2020 Bilateral Screening Mammogram, [facility]. 07/23/2021 Bilateral MG screening mammo w CAD, [facility]. 07/24/2022 Bilateral MG screening mammo w CAD, [facility]. Tissue Density: The breasts are almost entirely fatty. Findings: Analyzed By CAD. There is no suspicious group of microcalcifications or new suspicious mass in either breast. Overall Assessment: Negative, BI-RAD 1 Management: Screening Mammogram of both breasts in 1 year. . Patient should continue monthly self-breast exams. A clinical breast exam by your physician is recommended on an annual basis. This exam should not preclude additional follow-up of suspicious palpable abnormalities. Note on Jordyn scores and lifetime risk: 1. A Jordyn score greater than 3% is considered moderate risk. If this is the case, consider specialist referral to assess eligibility for a risk reducing agent. 2. If overall lifetime risk for the development of breast cancer is 20% or higher, the patient may qualify for future screening with alternating mammogram and breast MRI. Electronically signed and approved by: Ajay Culver M.D. Radiologis
== END | disposition home or self-care (01) ==
LOC: RADMAMWWP 10:42
PROVIDERS: ATTEND Family Medicine
DX: Z12.31 Encounter for screening mammogram for malignant neoplasm of breast (principal); Z80.3 Family history of malignant neoplasm of breast; Z78.0 Asymptomatic menopausal state
CPT/HCPCS: 77067

== ENCOUNTER → 2023-08-05 | Outpatient (CLI) | payer BC ==
[2023-08-05 10:47] LABS: Basophils # (A) 0.01 X 10*3/uL (0.00-0.10); Basophils % (A) 0.2 %; Eosinophils # (A) 0 X 10*3/uL (0.04-0.35); Eosinophils % (A) 0 %; HCT 41.3 % (37.2-46.3); HGB 13.1 g/dL (12.0-15.0); Lymphocytes # (A) 1.56 X 10*3/uL (0.90-5.00); Lymphocytes % (A) 30.2 %; MCH 28.1 pg (27.0-32.0); MCHC 31.7 g/dL (32.0-37.0); MCV 88.4 FL (80.0-97.0); Mean Platelet Volume 9.8 FL (9.5-12.2); Monocytes % (A) 7.7 %; NRBC Per 100 WBC 0 X 10*3/uL (0.00-0.01); Neutrophils # (A) 3.18 X 10*3/uL (1.80-7.70); Neutrophils % (A) 61.5 %; Platelet Count 289 X 10*3/uL (140-440); RBC 4.67 X 10*6/uL (4.10-5.20); RDW 13.1 % (11.5-14.5); WBC 5.17 X 10*3/uL (4.50-10.00)
[2023-08-05 11:09] LABS: ALT 30 U/L (8-44); AST 28 U/L (13-35); Albumin 4.4 g/dL (3.8-4.9); Albumin/Globulin Ratio 1.47 Ratio (1.60-3.17); Alkaline Phosphatase 97 U/L (41-126); BUN/Creat Ratio 29.67 Ratio (12.00-20.00); Blood Urea Nitrogen 17.8 mg/dL (9.0-27.0); Calcium 9.4 mg/dL (8.7-10.3); Carbon Dioxide 22.2 mmol/L (21.6-31.8); Chloride 104 mmol/L (96-109); Chol/HDL Ratio 2.63 Ratio; Glucose 125 mg/dL (70-110); LDL Cholesterol,Calculated 114.8 mg/dL (0.0-131.0); Potassium 4.4 mmol/L (3.5-5.5); Sodium 140 mmol/L (135-145); Total Bilirubin 0.3 mg/dL (0.3-1.2); Total Protein 7.4 g/dL (6.2-8.2); VLDL Calculation 12.28 mg/dL (5.00-40.00)
== END | disposition home or self-care (01) ==
LOC: LABWHC1 07:12
PROVIDERS: ATTEND Family Medicine
DX: Z13.228 Encounter for screening for other metabolic disorders (principal); Z13.29 Encounter for screening for other suspected endocrine disorder; E55.9 Vitamin D deficiency, unspecified; E78.2 Mixed hyperlipidemia
CPT/HCPCS: 36415; 80053; 80061; 82306; 83036; 84443; 85025

== ENCOUNTER → 2024-08-15 | Outpatient (CLI) | payer BC ==
--- NOTE | 2024-08-15 08:15 | XR ---
EXAMINATION TYPE: XR chest 2V DATE OF EXAM: 08/15/2024 7:45 AM COMPARISON: 08/12/2022 CLINICAL INDICATION: Female, 69 years old with history of R06.02 SHORTNESS OF BREATH: Shortness of br eath TECHNIQUE: XR chest 2V views of the chest are obtained. FINDINGS: Scattered senescent parenchymal changes noted. Hyperinflation compatible with COPD. No evidence for infiltrate. No evidence for atelectasis. Heart size is stable. Mediastinal structures are stable and grossly unremarkable. No evidence for hilar prominence. Degenerative changes dorsal spine. IMPRESSION: 1. No evidence for acute pulmonary disease. [facility], , 08/15/2024 8:13 AM
[2024-08-15 15:08] LABS: Basophils # (A) 0.07 X 10*3/uL (0.00-0.10); Basophils % (A) 0.9 %; Eosinophils # (A) 0.64 X 10*3/uL (0.04-0.35); Eosinophils % (A) 7.8 %; HCT 42.9 % (37.2-46.3); HGB 13.6 g/dL (12.0-15.0); Immature Grans, Automated 0.20 %; Lymphocytes # (A) 2.06 X 10*3/uL (0.90-5.00); Lymphocytes % (A) 25.2 %; MCH 28.9 pg (27.0-32.0); MCHC 31.7 g/dL (32.0-37.0); MCV 91.1 FL (80.0-97.0); Monocytes # (A) 0.60 X 10*3/uL (0.20-1.00); Monocytes % (A) 7.4 %; NRBC Per 100 WBC 0 X 10*3/uL (0.00-0.01); Neutrophils # (A) 4.77 X 10*3/uL (1.80-7.70); Neutrophils % (A) 58.5 %; Platelet Count 321 X 10*3/uL (140-440); RBC 4.71 X 10*6/uL (4.10-5.20); RDW 13.2 % (11.5-14.5); WBC 8.16 X 10*3/uL (4.50-10.00)
[2024-08-15 15:43] LABS: ALT 22 U/L (8-44); AST 28 U/L (13-35); Albumin 4.1 g/dL (3.8-4.9); Albumin/Globulin Ratio 1.37 Ratio (1.60-3.17); Alkaline Phosphatase 102 U/L (41-126); Anion Gap 10.20 mmol/L (4.00-12.00); BUN/Creat Ratio 20.57 Ratio (12.00-20.00); Blood Urea Nitrogen 14.4 mg/dL (9.0-27.0); Calcium 9.5 mg/dL (8.7-10.3); Carbon Dioxide 25.8 mmol/L (21.6-31.8); Chloride 102 mmol/L (96-109); Cholesterol 190.00 mg/dL (0.00-200.00); Globulin 3.0 g/dL (1.6-3.3); Glucose 99 mg/dL (70-110); HDL Cholesterol 74.50 mg/dL (40.00-60.00); LDL Cholesterol,Calculated 91.1 mg/dL (0.0-131.0); Magnesium 2.1 mg/dL (1.5-2.4); Potassium 4.7 mmol/L (3.5-5.5); Sodium 138 mmol/L (135-145); Total Protein 7.1 g/dL (6.2-8.2); Triglycerides 122.00 mg/dL (0.00-149.00); VLDL Calculation 24.40 mg/dL (5.00-40.00)
[2024-08-15 16:53] LABS: Vitamin B12 1969.0 pg/mL (200.0-944.0)
== END | disposition home or self-care (01) ==
LOC: LABWHC1 07:23
PROVIDERS: ATTEND Family Medicine
DX: Z13.228 Encounter for screening for other metabolic disorders (principal); Z13.29 Encounter for screening for other suspected endocrine disorder; R06.02 Shortness of breath; E55.9 Vitamin D deficiency, unspecified; E78.2 Mixed hyperlipidemia; G58.9 Mononeuropathy, unspecified
CPT/HCPCS: 36415; 71046; 80053; 80061; 82306; 82607; 83735; 84443; 85025

== ENCOUNTER → 2024-09-13 | Outpatient (CLI) | payer BC ==
--- NOTE | 2024-09-13 14:41 | MM ---
Reason for Exam: Screening (asymptomatic). Last mammogram was performed 1 year(s) and 1 month(s) ago. Patient History: Menarche at age 15. Patient has no children. Postmenopausal. Progesterone for 5 months. Patient used Hormonal Contraceptives for 15 years. Sister had breast cancer, age 49. Risk Values: Jordyn 5 year model risk: 3.3%. NCI Lifetime model risk: 11.1%. Prior Study Comparison: 07/23/2021 Bilateral MG screening mammo w CAD, [facility]. 07/24/2022 Bilateral MG screening mammo w CAD, [facility]. 07/26/2023 Bilateral MG screening mammo w CAD, [facility]. Tissue Density: The breasts are almost entirely fatty. Findings: Analyzed By CAD. Small areas of asymmetric density on the left are unchanged. There is no suspicious group of microcalcifications or new suspicious mass in either breast. Overall Assessment: Benign, BI-RAD 2 Management: Screening Mammogram of both breasts in 1 year. See note below in regards to the patient's increased 5 year Jordyn score. Patient should continue monthly self-breast exams. A clinical breast exam by your physician is recommended on an annual basis. This exam should not preclude additional follow-up of suspicious palpable abnormalities. Note on Jordyn scores and lifetime risk: 1. A Jordyn score greater than 3% is considered moderate risk. If this is the case, consider specialist referral to assess eligibility for a risk reducing agent. 2. If overall lifetime risk for the development of breast cancer is 20% or higher, the patient may qualify for future screening with alternating mammogram and breast MRI. [facility], , 09/13/2024 2:38 PM. Electronically signed and approved by: Davon Fox M.D. Radiologist
== END | disposition home or self-care (01) ==
LOC: RADMAMWWP 08:20
PROVIDERS: ATTEND Family Medicine
DX: Z12.31 Encounter for screening mammogram for malignant neoplasm of breast (principal); R92.313 Mammographic fatty tissue density, bilateral breasts; Z78.0 Asymptomatic menopausal state; Z80.3 Family history of malignant neoplasm of breast; Z92.0 Personal history of contraception
CPT/HCPCS: 77067

== ENCOUNTER → 2024-09-15 | Outpatient (CLI) | payer BC ==
--- NOTE | 2024-09-15 17:43 | BD ---
EXAMINATION TYPE: Axial Bone Density DATE OF EXAM: 09/15/2024 CLINICAL HISTORY: 69 years old Female. ICD-10 CODE: Z78.0 ASYMPTOMATIC MENOPAUSAL STATE , Additional History: Height: 63.5" Weight: 264lbs FRAX RISK QUESTIONS: Alcohol (3 or more units per day): No Family History (Parent hip fracture): No Glucocorticoids (More than 3mos): No (Ex: prednisone, prednisolone, methylprednisolone, dexamethasone, and hydrocortisone). History of Fracture in Adulthood: No Secondary Osteoporosis: 1. Type 1 Diabetes: No 2. Hyperthyroidism: No 3. Menopause before 45: No 4. Malnutrition: No 5. Chronic liver disease: No Rheumatoid Arthritis: No Current Tobacco Use: No RISK FACTORS HISTORY OF: Hip Fracture (Right/Left): No Spine Fracture: No History of Wrist Fracture: No Surgery to Spine/Hip(right/left)/Wrist (right/left): No MEDICATIONS: Thyroid Medications: No Osteoporosis Medications: No EXAM MEASUREMENTS: Bone mineral densitometry was performed using the [employer]. Bone mineral density as measured about the Lumbar spine is: ----- L1-L4(G/cm2): 1.143 T Score Values are as follows: ----- L1: -2.2 ----- L2: -0.7 ----- L3: 0.7 ----- L4: 0.3 ----- L1-L4: -0.3 Z Score Values are as follows: ----- L1: -1.7 ----- L2: -0.3 ----- L3: 1.2 ----- L4: 0.8 ----- L1-L4: 0.1 Bone mineral density has: increased 11.6% since study of: 07/23/2021 Bone mineral density about the R hip (g/cm2): 0.799 Bone mineral density about the L hip (g/cm2): 0.895 T Score values are as follows: -----R Neck: -0.9 -----L Neck: -1.3 -----R Total: -1.7 -----L Total: -0.9 Z Score values are as follows: -----R Neck: 0.0 -----L Neck: -0.5 -----R Total: -1.2 -----L Total: -0.4 Bone mineral density has: decreased -0.6% since study of: 07/23/2021 FRAX%s: The graph provided illustrates a 7.4% chance for a major osteoporotic fx and a 0.7% chance fo r the hips probability for fx in 10 years time. IMPRESSION: Osteopenia (T Score between -2.5 and -1). There is slightly increased risk of fracture and the patient may be considered for treatment. Re-Screen 2-5 years. NOTE: T-SCORE=SD OF THE YOUNG ADULT MEAN. [facility], , 09/15/2024 5:41 PM
== END | disposition home or self-care (01) ==
LOC: RADBDWWP 14:16
PROVIDERS: ATTEND Family Medicine
DX: M85.89 Other specified disorders of bone density and structure, multiple sites (principal); Z78.0 Asymptomatic menopausal state
CPT/HCPCS: 77080